=== PATIENT | female | born 1990 | race Caucasian/White ===

== ENCOUNTER 2020-03-11 11:15 | Emergency (ER) | payer OTHER, SELFPAY ==
--- NOTE | ~2020-03-11 | XR_ITS ---
EXAMINATION: XR chest 2V DATE: 03/11/2020 12:10 INDICATION: Chest pain and shortness of breath TECHNIQUE: PA and lateral views of the chest are obtained. COMPARISON: None available FINDINGS: The lungs are free of acute opacities. There is no pleural effusion or pneumothorax. The ca rdiomediastinal silhouette is normal. The visualized bones and soft tissues are unremarkable. IMPRESSION: 1. No acute cardiopulmonary abnormality. Reviewed, dictated and finalized at location A. RAISER
--- NOTE | ~2020-03-11 | XR_ITS ---
EXAMINATION: XR ribs LT 2V DATE: 03/11/2020 13:03 INDICATION: Left lower rib pain. TECHNIQUE: 3 views of left ribs were obtained. COMPARISON: Chest 2 views 03/11/2020 FINDINGS: There is no left-sided pneumonia, pleural effusion, or pneumothorax. The heart size is norm al. There is no rib fracture. IMPRESSION: 1. No rib fracture. Reviewed, dictated and finalized at location A. TRICAL MANAGER IMPRESSION: 1. No rib fracture.
[2020-03-11 11:18] VITALS: BP 147/103; PULSE 112; RESP 20; TEMP 37.6; O2SAT 100
--- NOTE | 2020-03-11 11:22 | PC.NURSE ---
Called to ED waiting room to speak to patient. Patient arrived to ED with young son to be evaluated for complaints of chest pain. Patient advised by staff of ED visiting policy that restricted anyone under the 18 y/o from visiting/accompanying a patient that is not being seen due to current COVID restrictions, Patient reported she has no one available to watch her son while she is being evaluated. Audra Molina, ED Director aware. Patient triaged and to be placed in family services room while waiting evaluation by the ED physician. Patient reports she will continue to try to find someone to watch her son.
--- NOTE | 2020-03-11 11:23 | ECG_ITS ---
Measurements Intervals [place] Rate: 100 P: 63 CT: 116 QRS: 19 QRSD: 84 T: 43 QT: 325 QTc: 419 Interpretive Statements SINUS TACHYCARDIA SINUS ARRHYTHMIA WITH SHORT CT INTERVAL ATRIAL PREMATURE COMPLEX BASELINE ARTIFACT- I, II, III, AVR, AVF, V1-V4 BORDERLINE ECG Electronically Signed On 03-11-2020 15:14:19 FITTING ROOM SUPERVISOR by Presley Tavarez D.O.
[2020-03-11 11:39] VITALS: BP 142/95; PULSE 90; RESP 18; O2SAT 96
[2020-03-11 11:45] LABS: Basophils Percent Auto 0.4 % (0.2-1.2); Eosinophils Percent Auto 0.7 % (0-4.4); Hemoglobin 13.4 g/dL (12.0-15.0); Immature Granulocyte Absolute 0.01 K/mm3 (0.00-0.031); Immature Granulocyte Percent A 0.2 % (0-0.5); Lymphocytes Percent Auto 30.3 % (18.3-44.2); Mean Corpuscular HGB Conc 34.4 g/dl (32-36); Mean Corpuscular Hemoglobin 29.6 pg (26-34); Mean Corpuscular Volume 86.1 fl (80-100); Mean Platelet Volume 11.7 fl (7.4-10.4); Monocytes Absolute Auto 0.3 K/mm3 (0.1-0.6); Monocytes Percent Auto 5.9 % (2.6-8.5); Neutrophils Absolute Auto 3.5 K/mm3 (1.3-6.7); Neutrophils Percent Auto 62.5 % (45.5-73.1); Platelet Count Result 193 k/mm3 (150-375); Red Blood Count 4.53 M/mm3 (4.2-5.4); Red Cell Distribution Width 12.8 % (11.5-14.5); White Blood Count 5.6 K/mm3 (4.5-10.0)
[2020-03-11] MEDS: ASPIRIN 81 MG CHEWABLE TABLET 324 MG PO (11:47)
[2020-03-11 12:03] LABS: INR 0.9; Prothrombin Time 12.7 Seconds (11.1-14.7)
[2020-03-11 12:20] LABS: Anion Gap 10 mmol/L (8-16); Blood Urea Nitrogen 10 mg/dL (7-17); Calcium 9.5 mg/dL (8.4-10.2); Carbon Dioxide 26 mmol/L (22-30); Chloride 104 mmol/L (98-107); Estimated CRCL calculation 88 ml/min; Estimated Glomerular Filt Rate > 60; Glucose 141 mg/dL (65-105); Sodium 140 mmol/L (137-145)
[2020-03-11 12:37] LABS: Troponin I < 0.012 ng/mL (0.000-0.034)
[2020-03-11] MEDS: KETOROLAC 30 MG/ML VIAL (*BKC) IM (13:54)
--- NOTE | 2020-03-11 14:03 | ED.CHESTPAIN ---
HPI - Chest Pain General Chief Complaint: Chest Pain Stated Complaint: CHEST PAIN X1D Time Seen by Provider: 03/11/20 11:54 History of Present Illness HPI narrative: Patient is a 29-year-old female who presents to the ER with left-sided chest pain. Sudden onset when waking up this morning. Worse with palpation and movement. Is located just under the breast. No runny nose/sore throat/cough. No known trauma. Patient is not taking any pain medication for this. There is no radiation of the pain. Related Data Home Medications Medication Instructions Recorded Confirmed norethindrone-e.estradiol-iron 1 tablet PO DAILY 03/11/20 03/11/20 [Aurovela Fe 1.5/30 (28)] Allergies Allergy/AdvReac Type Severity Reaction Status Date / Time No Known Allergies Allergy Unknown Unverified 10/08/18 08:15 Review of Systems Review of Systems: All systems reviewed & are unremarkable except as noted in HPI and below Constitutional: Constitutional: Denies chills, Denies fever(s) and Denies weakness ENT: Denies nasal congestion and Denies sore throat Cardiovascular: Cardiovascular: Reports chest pain, Denies rapid heart rate and Denies radiating jaw, neck or arm pain Respiratory: Respiratory: Denies cough, Denies dyspnea and Denies wheezing Gastrointestinal: Gastrointestinal: Denies abdominal pain, Denies nausea and Denies vomiting Musculoskeletal: Musculoskeletal: Denies back pain, Denies myalgias and Denies muscle cramps PMFSH Past Medical History Medical History (Updated 03/11/20 @ 14:12 by Jose Tinoco MD) Ectopic Healthy female adult Surgical History Surgical History (Updated 03/11/20 @ 14:09 by Jose Tinoco MD) No pertinent past surgical history Social History Social History (Updated 03/11/20 @ 14:09 by Jose Tinoco MD) Smoking status: Never smoker Exam Narrative: Exam Narrative: GENERAL: Well-appearing, well-nourished, and in no acute distress. HEAD: Normocephalic, atraumatic. CHEST: Clear to auscultation. No respiratory distress. Patient began crying after touching the lower chest wall inferior to the breast on the rib. HEART: Regular rate and rhythm. Normal peripheral pulses. ABDOMEN: Soft, nontender, nondistended. EXTREMITIES: Normal range of motion. No edema. SKIN: Warm, dry, no rash. No rash or bruising. NEURO: Alert and oriented x3. PSYCH: Normal mood and affect. Course Course Emergency Course: Informed of results. Discharge home. Will give naproxen some [place]. Vital Signs Vital signs: Vital Signs Temperature 99.7 F H 03/11/20 11:18 Pulse Rate 112 H 03/11/20 11:18 Respiratory Rate 20 03/11/20 11:18 Blood Pressure 147/103 H 03/11/20 11:18 Pulse Oximetry 100 03/11/20 11:18 Temperature 99.7 F H 03/11/20 11:18 Pulse Rate 90 03/11/20 11:39 Respiratory Rate 18 03/11/20 11:39 Blood Pressure 142/95 H 03/11/20 11:39 Pulse Oximetry 96 03/11/20 11:39 MDM - Chest Pain Lab Data Result diagrams: 03/11/20 11:28 03/11/20 11:28 Labs: Lab Results 03/11/20 03/11/20 03/11/20 Range/Units 11:28 11:28 11:28 WBC 5.6 (4.5-10.0) K/mm3 RBC 4.53 (4.2-5.4) M/mm3 Hgb 13.4 (12.0-15.0) g/dL Hct 39.0 (37.0-47.0) % MCV 86.1 (80-100) fl MCH 29.6 (26-34) pg MCHC 34.4 (32-36) g/dl RDW 12.8 (11.5-14.5) % Plt Count 193 (150-375) k/mm3 MPV 11.7 H (7.4-10.4) fl Immature Gran % (Auto) 0.2 (0-0.5) % Neut % (Auto) 62.5 (45.5-73.1) % Lymph % (Auto) 30.3 (18.3-44.2) % Nolan % (Auto) 5.9 (2.6-8.5) % Eos % (Auto) 0.7 (0-4.4) % Baso % (Auto) 0.4 (0.2-1.2) % Lymph # (Auto) 1.70 (0.9-3.2) K/mm3 Nolan # (Auto) 0.3 (0.1-0.6) K/mm3 Eos # (Auto) 0.0 (0-0.3) K/mm3 Baso # (Auto) 0.0 (0.0-0.1) K/mm3 Abs Immat Gran (auto) 0.01 (0.00-0.031) K/mm3 Absolute Neuts (auto) 3.5 (1.3-6.7) K/mm3 Absolute Nucleated RBC 0.0 (0.0-0.012)
[2020-03-11 14:21] VITALS: BP 124/78; PULSE 74; RESP 18; O2SAT 99
[2020-03-11 14:25] VITALS: BP 124/78; PULSE 65; RESP 17; O2SAT 100
== END 2020-03-11 14:27 | disposition home or self-care (01) ==
PROVIDERS: Emergency Provider Emergency Medicine
DX: R07.9 Chest pain, unspecified (principal); R07.89 Other chest pain; R00.0 Tachycardia, unspecified; I49.1 Atrial premature depolarization
CPT/HCPCS: 36415; 71046; 71100; 80048; 84484; 85025; 85610; 85730; 93005; 96372; 99284; A9270; J1885

== ENCOUNTER 2023-12-23 15:52 | Outpatient (CLI) | payer BC, SELFPAY ==
--- NOTE | ~2023-12-23 | US_ITS ---
EXAMINATION: US OB transvaginal DATE: 12/23/2023 16:17 INDICATION: Uncertain dates. Confirmation of viability. TECHNIQUE: Real-time transvaginal pelvic ultrasound was performed. COMPARISON: None. FINDINGS: The uterus measures 9.1 x 5.6 x 5.9 cm. There is an intrauterine gestational sac. A yolk sac is ident ified. The crown rump length measures 2 mm, which correlates with an estimated gestational age of 5 weeks and 5 day(s) (+/-) 4 day(s). heart motion is identified measuring 95 beats per penny te (bpm) by M-mode Doppler. There is a small subchronic hematoma. The right ovary measures 2.9 x 2.5 x 2.3 cm. The left ovary is not visualized. There is no free fluid in the pelvis. IMPRESSION: 1. Single living intrauterine gestation with estimated date of delivery of 08/19/2024. 2. Small subchronic hematoma. Reviewed, dictated and finalized at location A. IMPRESSION: 1. Single living intrauterine gestation with estimated date of delivery of 07/22. 2. Small subchronic hematoma.
== END 2023-12-23 15:53 | disposition home or self-care (01) ==
PROVIDERS: PCP Advanced Practice Midwife; Visit Provider Advanced Practice Midwife
DX: O36.80X0 Pregnancy with inconclusive fetal viability, not applicable or unspecified (principal); O46.90 Antepartum hemorrhage, unspecified, unspecified trimester
CPT/HCPCS: 76817

== ENCOUNTER 2023-12-31 15:54 | Outpatient (CLI) | payer BC, SELFPAY ==
--- NOTE | ~2023-12-31 | US_ITS ---
EXAMINATION: US OB transvaginal DATE: 12/31/2023 16:30 INDICATION: Subchronic hematoma. TECHNIQUE: Real-time transvaginal pelvic ultrasound was performed. COMPARISON: Ultrasound 12/23/2023 FINDINGS: The uterus measures 10.2 x 6.1 x 7.0 cm. There is an intrauterine gestational sac. A yolk sac is iden tified. The crown rump length measures 7 mm, which correlates with an estimated gestational ag e of 6 weeks and 4 day(s) (+/-) 4 day(s). heart motion is identified measuring 142 beats per mi nute (bpm) by M-mode Doppler. There is a small subchronic hematoma measuring 1.4 x 0.2 x 0.7 cm. The right ovary measures 3.8 x 2.0 x 2.4 cm. The left ovary is not visualized. There is no free fluid in the pelvis. IMPRESSION: 1. Single living intrauterine gestation with estimated date of delivery of 08/19/2024 based on the ul trasound from 12/23/2023. 2. Stable small subchronic hematoma. Reviewed, dictated and finalized at location A. IMPRESSION: 1. Single living intrauterine gestation with estimated date of delivery of 07/22 based on the ultrasound from 12/23/2023. 2. Stable small subchronic hematoma.
== END 2023-12-31 15:55 | disposition home or self-care (01) ==
PROVIDERS: PCP Obstetrics & Gynecology Gynecology; Visit Provider Obstetrics & Gynecology Gynecology
DX: O36.8910 Maternal care for other specified fetal problems, first trimester, not applicable or unspecified (principal); O46.90 Antepartum hemorrhage, unspecified, unspecified trimester; Z3A.00 Weeks of gestation of pregnancy not specified
CPT/HCPCS: 76817

== ENCOUNTER 2024-01-29 10:44 | Outpatient (CLI) | payer BC, SELFPAY ==
--- NOTE | ~2024-01-29 | US_ITS ---
Pelvic ultrasound. Clinical History: First trimester , subchorionic hemorrhage COMPARISON: 12/31/2023 Technique: Realtime transabdominal and transvaginal scanning of the pelvis was performed. Color flow Doppler and Doppler spectral analysis were performed. Findings: The uterus is anteverted, and contains an intrauterine gestation. Simla-rump length of 4.6 cm corresponds to an estimated gestational age of 11 weeks 3 days. heart rate is 157 bpm. No ray bchorionic hemorrhage evident on the current exam. The right ovary measures 3.4 x 2.0 x 2.5 cm. No significant right ovarian or adnexal mass is seen. The left ovary measures 2.6 x 2.6 x 1.0 cm. No significant left ovarian or adnexal mass is seen. There is no evidence of free fluid in the cul de sac. Impression: Live intrauterine gestation, with estimated gestational age of 11 weeks 3 days. heart rate is 1 57 bpm. Interval resolution of subchronic hematoma. Reviewed, dictated and finalized at location . GE INSIDE ADJUSTER Impression: Live intrauterine gestation, with estimated gestational age of 11 weeks 3 days. heart rate is 157 bpm. Interval resolution of subchronic hematoma.
== END 2024-01-29 10:45 | disposition home or self-care (01) ==
LOC: MICIMG 10:45
PROVIDERS: PCP Obstetrics & Gynecology Gynecology; Visit Provider Obstetrics & Gynecology Gynecology
DX: O36.8910 Maternal care for other specified fetal problems, first trimester, not applicable or unspecified (principal); Z3A.00 Weeks of gestation of pregnancy not specified
CPT/HCPCS: 76801

== ENCOUNTER 2024-03-18 08:23 | Outpatient (CLI) | payer BC, SELFPAY ==
--- NOTE | ~2024-03-18 | US_ITS ---
EXAMINATION: US OB /maternal detail DATE: 03/18/2024 09:27 INDICATION: anatomic survey. TECHNIQUE: Real-time ultrasound of the pelvis was performed. COMPARISON: Ultrasound 01/29/2024, 12/23/2023 FINDINGS: There is a single living fetus in vertex presentation. The placenta is posterior, 5.6 cm from the ce rvix. The cervical length is 3.1 cm on transabdominal images, which is normal. heart rate is 15 3 beats per minute (bpm). The amniotic fluid volume is subjectively normal. The following biometric data were obtained: Biparietal diameter (BPD): 4.1 cm; head circumference (HC): 15.3 cm; abdominal circumference (AC): 13 .4 cm; femur length (FL): 2.7 cm. These measurements are concordant. Estimated weight is 243 g +/- 36 g, which correlates with the 76th percentile when 08/19/24 is u sed as estimated date of delivery. As single measurements, these parameters are each equal to the following estimated gestational ages: BPD: 18 weeks 2 days. HC: 18 weeks 2 days. AC: 18 weeks 6 days. FL: 18 weeks 1 days. estimated gestational age based solely on measurements from this exam is 18 weeks 3 days +/- 1 weeks 2 days. The cerebral ventricles, cerebellum, cisterna magna, nuchal fold, and spine are normal. The heart is normal. The diaphragm, stomach, kidneys, and bladder are normal. There are two umbilical arteries to yield a 3-vessel cord. The cord insertion is normal. IMPRESSION: 1. Single living fetus in vertex presentation. 2. Estimated weight is 243 g +/- 36 g, which correlates with the 76th percentile when 08/19/24 is used as estimated date of delivery. This date was set by ultrasound on 12/23/2023. 3. Normal anatomic survey. Reviewed, dictated and finalized at location A. ING ANALYST IMPRESSION: 1. Single living fetus in vertex presentation. 2. Estimated weight is 243 g +/- 36 g, which correlates with the 76th pe rcentile when 08/19/24 is used as estimated date of delivery. This date was set by ultrasound on 12/23/2023. 3. Normal anatomic survey.
== END 2024-03-18 08:24 | disposition home or self-care (01) ==
LOC: MICIMG 08:24
PROVIDERS: PCP Advanced Practice Midwife; Visit Provider Advanced Practice Midwife
DX: Z36.9 Encounter for antenatal screening, unspecified (principal)
CPT/HCPCS: 76805

== ENCOUNTER 2024-04-25 16:14 | Outpatient (RCR) | payer BC, SELFPAY ==
[2024-04-25 16:29] VITALS: BP 110/62; PULSE 80
== END 2024-07-24 23:59 | disposition home or self-care (01) ==
LOC: ANHOBOP 16:14
PROVIDERS: Visit Provider Obstetrics & Gynecology Gynecology
DX: O26.892 Other specified pregnancy related conditions, second trimester (principal); Z3A.23 23 weeks gestation of pregnancy
CPT/HCPCS: 59025

== ENCOUNTER 2024-07-26 20:04 | Observation (INO) | payer BC, SELFPAY ==
--- OUTSIDE RECORDS SUMMARY | 2024-07-26 22:42 | XMS_ITS | Clinical Summary ---
Author Organization [place] [address] [facility] Address [address] [place] [address] Care Team Providers Care Airplane Gastank Liner Assembler Name Role Phone Ana Paula Gupta MD Primary Care Provid er Allergies No known active allergies Medications PNV with [id number] 27 mg iron- 1 mg tabletIndication s:Vitamin Deficiency Prevention Take 1 tablet by mouth daily 90 tablet 2 11/18/2022 Active Active Problems Problem Noted Date Diagnosed Date Abdominal pain 05/29/2021 Knee sprain 05/29/2021 Mass of breast 05/29/2021 Estimated Date of Delivery Comme nts Yes 08/19/2024 Resolved Problems Problem Noted Date Diagnosed Date Resolved Date Encounter for routine follow-up 11/16/2022 12/29/2022 Overview (11/17/2022): # ID: Afebrile. No signs/symptoms of infection. # Heme: Hgb 12.0. EBL 300 mL. No symptoms acute blood loss anemia. # CV/Pulm: Gestational hypertension - Blood pressures well controlled on no meds. Continue to monitor, consider starting antihypertensive if BP persistently elevated. Asymptomatic, denies GILMORE/RUQ pain/vision changes. CBC/CMP wnl, UPC wnl. Enrolled in remote BP monitoring. One MR BP noted in the last 24 hours. # GI/: Tolerating PO. Voiding spontaneously. # Pain: Controlled with above regimen. # MOC: Declines s/p counseling . # MOF: . Urine drug screen not indicated. Patient informed of results: N/A. # Post DVT prophylaxis: The patient has the following MAJOR risk factors none and the following MINOR risk factors BMI 30-39. SCDs ordered for VTE prophylaxis. # Disposition: Follow up to be scheduled with primary OB. Desires discharge home today. Normal labor 11/15/2022 12/29/2022 Supervision of other normal , antepartum 10/02/2022 12/29/2022 Overview (10/30/2022): -MARAL from [facility] @ 34wks, records in media and EPIC -h/o PPROM/PTD TIUP @ 17wks in 2012, adm to [facility] 08/08-08[facility]09 for ctx, SVE C/L/Hi BMZ 08/08 -h/o migraines -+chlamydia @ [facility] NO[facility], MARAL negative -h/o R ectopic and salpingectomy 09/19/2018 -R ovarian 3.2cm cyst -h/o ASCUS pap HPV-, due for pap -nml anatomy [x] Initial BMI: 33.19 [x] Labs: Labs: Lab Results Component Value Date ABORH O Positive 08/08/2022 IDCOOMB Negative 08/08/2022 [id number] Nonreactive 08/08/2022 LABRPR Nonreactive 08/08/2022 RUBELIGG Reactive 08/08/2022 HEPBSAG Nonreactive 08/08/2022 [x] Genetic Screening: nml NIPT [x] Baby ASA: n/a [x] 1hr GCT at 24-28wks: nml 94 [x] Tdap (27-36wks): 10/13/2022:Received at 28 weeks per pt. au [] Flu Shot: [] COVID vaccine: [] Rhogam (if Rh neg): n/a O+ [x] GBS at 36 wks: negative [x] [x] control method: condoms [] 39 weeks discussion of IOL vs. Expectant management: [x] Mode of delivery: anticipate [] For C/S bottle of CHG 4% and hand out provided @ 36wks Boy, NO circ, , [facility] peds Teaching: [x] 1st visit [x] 28-30 week [x] 36 week Threatened labor, antepartum 08/08/2022 12/29/2022 Encounters Date Type Department Care Team Description 05/12/2024 10:45 AM BRAIDING MACHINE OPERATOR Office Visit [facility] Medical [facility] Convenient Care at [address] [phone] Erica Mckeon NP COVID-19 (Primary Dx); Upper respiratory tract infection, unspecified type 04/29/2024 3:15 PM BRAIDING MACHINE OPERATOR Office Visit [facility] Convenient Care at [address] [phone] Nirmala Guerin NP Cough, unspecified type (Primary Dx); Sore throat; Viral upper respiratory tract infection from Last 3 Months Immunizations Immunization Administration Dates Next Due MMR 11/16/2022(Deferred: No longer n eeded) Varicella 11/16/2022(Deferred: No longer n eeded) Surgical History Surgery Date Site/Laterality Comments SALPINGECTOMY 03/22/2018 - 03/21/2019 Right WISDOM TOOTH EXTRACTION 03/22/2009 - 03/21/2010 Medical History Medical History Date Comments History of transfusion 2013 depression Migraine Social History Tobacco Use Types Packs/Day Years Used Date Smoking Tobacco: Never Smokeless Tobacco: Never Tobacco Cessation:Counseling Given: Not Answered Social Connection and Isolat ion Panel [NHANES] Answer Date Recorded In a typical week, how many times do you talk on the phone with family, friends, or neighbors? More than three times a week 11/16/2022 How often do you get togethe r with friends or relatives? More than three times a week 11/16/2022 How often do you attend chur ch or mandaeism services? Never 11/16/2022 Do you belong to any clubs o r organizations such as voodoo groups, unions, fraternal or athletic groups, or school groups? No 11/16/2022 How often do you attend meet ings of the clubs or organizations you belong to? Never 11/16/2022 Are you , , di vorced, , never , or living with a partner? 11/16/2022 AUDIT-C Answer Date Recorded Q1: How often do you have a drink containing alc ohol? Never 10/13/2022 Average Number of Drinks Not on file 023 Frequency of Binge Drinking Not on file 09/20 Overall Financial Resource Strain (CARDIA) Answe r Date Recorded How hard is it for you to pa y for the very basics like food, housing, medical care, and heating? Not very hard 11/16/2022 Hunger Vital Sign Answer Date Recorded Within the past 12 months, y ou worried that your food would run out before you got the money to buy more. Never true 11/17/19 23 Within the past 12 months, t he food you bought just didn't last and you didn't have money to get more. Never true 11/16/2022 PRAPARE - Transportation Answer Date Re corded In the past 12 months, has l ack of transportation kept you from medical appointments or from getting medications? No 10/21 In the past 12 months, has l ack of transportation kept you from meetings, work, or from getting things needed for daily living? No 11/16/2022 Housing Stability Vital Sign Answer Saud e Recorded In the last 12 months, was t here a time when you were not able to pay the mortgage or rent on time? No 11/16/2022 In the last 12 months, how many places have you lived? 0 11/16/2022 In the last 12 months, was t here a time when you did not have a steady place to sleep or slept in a skilled nursing (including now)? No 11/16/2022 Juda Depression Scale Answer Date Recorded Juda Depression Scale Total 15 12/29/2022 The thought of harming myself has occurred to me . Never 12/29/2022 Personal Safety Answer Date Recorded Have you ever been in or are you currently in a harmful physical or emotional relationship or is someone making you feel afraid or unsafe? 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 file Not on file Not on f ile Obstetrics History Para Term AB IAB SAB Ectopic Multiple Livin g Live Births 5 2 2 2 1 1 0 2 2 Date Outcome GA Total Labor Labor/2nd/3rd Weight Sex Type Anes PTL Idania A1 A5 Name Clin 2012 SAB 17w 0d Complications:Other (Comment ),Premature Rupture of Membranes,Twin 2013 Term 40w 0d M Vag-Sp ont Epidur al Y Livin g Delivery Location:[place], [place] 2019 Ectopic ECTOPI C 2022 Term 39w 1d 22h 57m 22h 40m/0h 14m/0h 03m 3.39 kg (7 lb 7.6 oz) M Vagina l Epidur al N Livin g 9 9 WAYLON BARBOUR, Talya Mead MD Delivery Location:[facility] ([facility]) Current Comments 4191-LY-IIYS-EBL 300 mL, gHT N Last Filed Vital Signs Vital Sign Reading Time Taken Comments Blood Pressure 122/76 05/12/2024 10:56 AM BRAIDING MACHINE OPERATOR Pulse 77 05/12/2024 10:56 AM BRAIDING MACHINE OPERATOR Temperature 36.3 C (97.4 F) 05/12/2024 10:56 AM BRAIDING MACHINE OPERATOR Respiratory Rate 18 05/12/2024 10:56 AM BRAIDING MACHINE OPERATOR Oxygen Saturation 97% 05/12/2024 10:56 AM BRAIDING MACHINE OPERATOR Inhaled Oxygen Concentration - - Weight 88.9 kg (196 lb) 05/12/2024 10:56 AM BRAIDING MACHINE OPERATOR Height 160 cm (5' 3 ) 05/12/2024 10:56 AM BRAIDING MACHINE OPERATOR Body Mass Index 34.72 05/12/2024 10:56 AM BRAIDING MACHINE OPERATOR Plan of Treatment Health Maintenance Due Date Last Done Comments DTaP/Tdap/Td Vaccine (1 - Tdap) 07/27/2003 Varicella Vaccines (1 of 2 - 13+ 2-dose series) 2005 Hepatitis B Screening 2010 Regular Well Visit/Exam 18-64 2010 Influenza Vaccine (#1) 2023 Cervical Cancer Screening 12/30/2023 12/29/2022 Depression Screening 12/30/2023 12/29/2022 Hepatitis C Screening Completed 08/08/2022 HPV Vaccines Aged Out No longer eligi ble based on patient's age to complete this topic Pneumococcal vaccine <65 Aged Out No longer eligible based on patient's age to complete this topic Procedures Procedure Name Priority Date/Time Associated Diagnosis Comments POC INFLUENZA A/B, COVID-19 ANTIGEN Routine 05/12/2024 11:06 AM BRAIDING MACHINE OPERATOR Upper respiratory tract infection, unspecified type POCT RAPID STREP Routine 04/29/2024 3:29 PM BRAIDING MACHINE OPERATOR Sore throat POC INFLUENZA A/B, COVID-19 ANTIGEN Routine 04/29/2024 3:28 PM BRAIDING MACHINE OPERATOR Cough, unspecified type PAP AND HPV, REFLEX TO HPV GENOTYPES Routine 12/29/2022 4:25 PM CDT Encounter for routine follow-up HEPATITIS C RNA, QUANTITATIVE, PCR Routine 08/08/2022 8:32 PM CDT from Last 3 Months or Most Recently Relevant to Health Maintenance Results * (ABNORMAL) POC Influenza A/B, COVID-19 antigen (05/12/2024 11:06 AM BRAIDING MACHINE OPERATOR) Influenza A Ag, POC Negative Negative [facility] Influenza B Ag, POC Negative Negative [facility] COVID-19 Ag POC Positive(A) Presumptive Negative, Invalid [facility] Nasal 05/12/2024 11:0 6 AM BRAIDING MACHINE OPERATOR Erica Mckeon COMPUTER EQUIPMENT REPAIRER POINT OF CARE TEST ORDERABLE S Final Result [facility] [address] [place] [address] * POCT rapid strep A (04/29/2024 3:29 PM BRAIDING MACHINE OPERATOR) Rapid Strep A, POC Negative Negative Swab 04/29/2024 3:29 PM BRAIDING MACHINE OPERATOR Nirmala Guerin COMPUTER EQUIPMENT REPAIRER POINT OF CARE TEST ORDERABLES F inal Result * POC Influenza A/B, COVID-19 antigen (04/29/2024 3:28 PM BRAIDING MACHINE OPERATOR) Influenza A Ag, POC Negative Negative [facility] Influenza B Ag, POC Negative Negative [facility] COVID-19 Ag POC Presumptive Negative Presumptive Negative, Invalid [facility] Nasal 04/29/2024 3:28 PM BRAIDING MACHINE OPERATOR Nirmala Guerin NP POINT OF CARE TEST ORDERABLES F inal Result [facility] [address] [place] [address] * Pap and HPV, reflex to HPV Genotypes (12/29/2022 4:25 PM CDT) CLINICAL INFORMATION: ASCUS/LIVAN Pap/Bx w/in 2yrs. SCREENING [facility] LMP UNKNOWN [facility] Previous Pap ASCUS [facility] Prev. Bx NONE GIVEN [facility] SOURCE: Cervix, Endocervix [facility] Pap, specimen adequacy SATISFACTORY FOR EVALUATION [facility] HPV interp Cytology Results: Negative for intraepithelial lesion or malignancy. Atrophic pattern; predominantly parabasal cells [facility] Kiln Firer YQ, CT(ASCP) CT screening location: [place] [address] [place] [address] [facility] Review parachute rigger KMS, CT(ASCP) CT Screening location: [place] [address] [place] [address] [facility] Comment [facility] Comment: EXPLANATORY NOTE: The Pap is a screening test for cervical cancer. It is not a diagnostic test and is subject to false negative and false positive results. It is most reliable when a satisfactory sample, regularly obtained, is submitted with relevant clinical findings and history, and when the Pap result is evaluated along with historic and current clinical information. EFFECTIVE FEBRUARY 15, 2023, the version of ThinPrep you ordered, commonly known as manual ThinPrep, will be DISCONTINUED. An alternative form of ThinPrep, called ThinPrep Imaging, will continue to be available. For a copy of the client communication (TIS Client Letter) showing TIS test codes, see [email or web address]/Resources, and navigate to Well-Woman>Physician Materials>TIS Client Letter. You can also call for test code assistance. Human papillomavirus DNA, High Risk E6/E7 Not Detected NOT DETECTED [employer] [facility] Comment: Not Detected High Risk HPV types (16,18,31,33,35,39,45,51,52, 56,58,59,66,68) were not detected. Other HPV types which cause anogenital lesions may be present. The significance of the other types of HPV in malignant processes has not been established. Methodology: Real Time PCR Thin prep 12/29/2022 4:25 PM CDT 12/30/2022 1:46 PM CDT Julia Rios NP LAB CYTOLOGY ORDERAB LES Final Result Performing Organization Address City/[facility] Co de Phone Number QUEST [facility] [address] [place] [address] [employer] [facility] [address] [facility] [place] [address] * Hepatitis C (HCV) RNA PCR, quantitative (08/08/2022 8:32 PM CDT) [facility] HCV RNA result Not Detected [facility] Comment: The quantifiable range of this assay is 15 IU/mL to 100,000,000 IU/mL (1.18 log IU/mL to 8.00 log IU/mL). Testing was performed by the [facility] 6800 HCV Test ([employer] Testing performed at [facility] Current Interpretive Data was last revised on 2020 Blood 08/08/2022 8:32 PM CDT 08/08/2022 8:55 PM CDT us Nirmala Koroma MD LAB MICROBIOLOGY - GENERAL O RDERABLES Final Result [facility] MENA[facility] Department [place] [address] from Last 3 Months or Most Recently Relevant to Health Maintenance Insurance BLUE ACCESS PA BLUE ACCESS PA BLUE ACCESS PA IDPA Advance Directives For more information, please contact: [phone] * Full Code (Latest Code Status on File) Date Activated Date Inactivated Comments 11/16/2022 5:18 AM 11/17/2022 6:35 PM * Full Code Date Activated Date Inactivated Comments 11/15/2022 4:07 AM 11/16/2022 5:18 AM Full CPR in case of cardiopulmonary arrest * Full Code Date Activated Date Inactivated Comments 08/08/2022 7:32 PM 08/09/2022 9:05 PM Care Teams Airplane Gastank Liner Assembler Relationship Specialty Start Date End Date Ana Paula Gupta MD [address] [place] [address] PCP - General Internal Medicine 05/12/24
--- OUTSIDE RECORDS SUMMARY | 2024-07-26 22:42 | XMS_ITS | Encounter Summary ---
Author Organization [facility] Address [address] [place] [address] Care Team Providers Care Technology Integration Specialist Name Role Phone None, Provider Primary Care Provider Unavaila ble Encounter Details Date Type Department Care Team (Latest Contact Info) Description 01/25/2018 Abstract [facility] Medical Group , Generic Conversion, Social History Tobacco Use Types Packs/Day Years Used Date Smoking Tobacco: Never Assessed Comments Unknown Sex and Gender Information Value Date Recorded Sex Assigned at Not on file Legal Sex Female 4:53 PM CDT Gender Identity Not on file Sexual Orientation Not on file documented as of this encounter Plan of Treatment Not on file documented as of this encounter Visit Diagnoses Not on filedocumented in this encounter Care Teams Technology Integration Specialist Relationship Specialty Start Date End Date None, Provider, PCP - General UNKNOWN PHYSICIAN SPECIALTY 08/08/22 documented as of this encounter
--- OUTSIDE RECORDS SUMMARY | 2024-07-26 22:42 | XMS_ITS | Referral Summary ---
Author Organization [place] [id number] [facility] Address [address] [place] [address] Care Team Providers Care College Athletic Director Name Role Phone Ana Paula Gupta MD Primary Care Provid er Encounters Date Type Department Care Team Description 05/12/2024 10:45 AM HEALTH RESEARCHER Office Visit [facility] Medical [facility] Convenient Care at [address] [phone] Erica Mckeon NP COVID-19 (Primary Dx); Upper respiratory tract infection, unspecified type 04/29/2024 3:15 PM HEALTH RESEARCHER Office Visit [facility] Convenient Care at [address] [phone] Nirmala Guerin NP Cough, unspecified type (Primary Dx); Sore throat; Viral upper respiratory tract infection from Last 3 Months Allergies No known active allergies Medications PNV with rzqzuef-pdyh-YC 27 mg iron- 1 mg tabletIndication s:Vitamin [...] ABORH O Positive 08/08/2022 IDCOOMB Negative 08/08/2022 [id number] Nonreactive 08/08/2022 LABRPR Nonreactive 08/08/2022 RUBELIGG Reactive [...] 36 week Threatened labor, antepartum 08/08/2022 12/29/2022 Immunizations Immunization Administration Dates Next Due MMR 11/16/2022(Deferred: No longer n eeded) Varicella 11/16/2022(Deferred: No longer n eeded) Social History Tobacco Use Types Packs/Day Years [...] 11/16/2022 How often do you attend chur or synagogue services? Never 11/16/2022 Do you belong to any clubs o r organizations such as latter-day groups, unions, fraternal or athletic groups, or [...] place to sleep or slept in a halfway (including now)? 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 Not on file Not on f ile Last Filed Vital Signs Vital Sign Reading Time Taken Comments Blood Pressure 122/76 05/12/2024 10:56 AM HEALTH RESEARCHER Pulse 77 05/12/2024 10:56 AM HEALTH RESEARCHER Temperature 36.3 C (97.4 F) 05/12/2024 10:56 AM HEALTH RESEARCHER Respiratory Rate 18 05/12/2024 10:56 AM HEALTH RESEARCHER Oxygen Saturation 97% 05/12/2024 10:56 AM HEALTH RESEARCHER Inhaled Oxygen Concentration - - Weight 88.9 kg (196 lb) 05/12/2024 10:56 AM HEALTH RESEARCHER Height 160 cm (5' 3 ) 05/12/2024 10:56 AM HEALTH RESEARCHER Body Mass Index 34.72 05/12/2024 10:56 AM HEALTH RESEARCHER Plan of Treatment Not on file Procedures Procedure Name Priority Date/Time Associated Diagnosis Comments POC INFLUENZA A/B, COVID-19 ANTIGEN Routine 05/12/2024 11:06 AM HEALTH RESEARCHER Upper respiratory tract infection, unspecified type POCT RAPID STREP Routine 04/29/2024 3:29 PM HEALTH RESEARCHER Sore throat POC INFLUENZA A/B, COVID-19 ANTIGEN Routine 04/29/2024 3:28 PM HEALTH RESEARCHER Cough, unspecified type PAP AND HPV, REFLEX TO HPV GENOTYPES Routine 12/29/2022 4:25 PM CDT Encounter for routine follow-up HEPATITIS C RNA, QUANTITATIVE, PCR Routine 08/08/2022 8:32 PM CDT from Last 3 Months or Most Recently Relevant to Health Maintenance Results * (ABNORMAL) POC Influenza A/B, COVID-19 antigen (05/12/2024 11:06 AM HEALTH RESEARCHER) Influenza A Ag, POC Negative Negative [facility] [place] Influenza B Ag, POC Negative Negative [facility] [place] COVID-19 Ag POC Positive(A) Presumptive Negative, Invalid [facility] Nasal 05/12/2024 11:0 6 AM HEALTH RESEARCHER us Erica Mckeon NP POINT OF CARE TEST ORDERABLE S Final Result [facility] [address] [place] [address] * POCT rapid strep A (04/29/2024 3:29 PM HEALTH RESEARCHER) Pathologist [facility] Rapid Strep A, POC Negative Negative Swab 04/29/2024 3:29 PM HEALTH RESEARCHER Nirmala Guerin NP POINT OF CARE TEST ORDERABLES F inal Result * POC Influenza A/B, COVID-19 antigen (04/29/2024 3:28 PM HEALTH RESEARCHER) Pathologist [facility] Influenza A Ag, POC Negative Negative [facility] Influenza B Ag, POC Negative Negative [facility] COVID-19 Ag POC Presumptive Negative Presumptive Negative, Invalid [facility] Nasal 04/29/2024 3:28 PM HEALTH RESEARCHER Nirmala Guerin CHICLE GRINDER FEEDER POINT OF CARE TEST ORDERABLES F inal Result Performing Organization Address City/State/[facility] Co de Phone Number RAJESHShira SY[facility] [address] [place] [address] * Pap and HPV, reflex to HPV Genotypes (12/29/2022 4:25 PM CDT) Pathologist [facility] CLINICAL INFORMATION: ASCUS/LIVAN Pap/Bx w/in 2yrs. SCREENING [facility] LMP UNKNOWN [facility] Previous Pap ASCUS [facility] Prev. Bx NONE GIVEN [facility] SOURCE: Cervix, Endocervix [facility] Pap, specimen adequacy SATISFACTORY FOR EVALUATION [facility] HPV interp Cytology Results: Negative for intraepithelial lesion or malignancy. Atrophic pattern; predominantly parabasal cells [facility] Microsoft Net Developer YQ, CT(ASCP) CT screening location: [place] [address] [place] [address] [facility] Review shoe cleaner KMS, CT(ASCP) CT Screening location: [place] [address] [address] [facility] Comment [facility] Comment: EXPLANATORY NOTE: The Pap is a [...] Client Letter) showing TIS test codes, see www.Xytis/Resources, and navigate to PinticsWoman>Physician Materials>TIS Client Letter. You can also call for test code assistance. Human papillomavirus DNA, High Risk E6/E7 Not Detected NOT DETECTED [facility] Comment: Not Detected High Risk HPV types (16,18,31,33,35,39,45,51,52, 56,58,59,66,68) were not detected. Other HPV types which cause anogenital lesions may be present. The significance of the other types of HPV in malignant processes has not been established. Methodology: Real Time PCR Thin prep 12/29/2022 4:25 PM CDT 12/30/2022 1:46 PM CDT Julia Rios NP LAB CYTOLOGY ORDERAB LES Final Result [facility] [address] [place] [address] [employer] [address] [place] [address] * Hepatitis C (HCV) RNA PCR, quantitative (08/08/2022 8:32 PM CDT) Pathologist [facility] HCV RNA result Not Detected [facility] Comment: The quantifiable range of this assay is 15 IU/mL to 100,000,000 IU/mL (1.18 log IU/mL to 8.00 log IU/mL). Testing was performed by the [facility] 6800 HCV Test ([employer] Testing performed at [facility] Current Interpretive Data was last revised on 2020 Blood 08/08/2022 8:32 PM CDT 08/08/2022 8:55 PM CDT Nirmala Koroma MD LAB MICROBIOLOGY - GENERAL O RDERABLES Final Result [facility] Department [place] [address] from Last 3 Months or Most Recently Relevant to Health Maintenance [place] IDVA Advance Directives For more information, please contact: [phone] * Full Code (Latest Code Status on File) Date Activated Date Inactivated Comments 11/16/2022 5:18 AM 11/17/2022 6:35 PM * Full Code Date Activated Date Inactivated Comments 11/15/2022 4:07 AM 11/16/2022 5:18 AM Full CPR in case of cardiopulmonary arrest * Full Code Date Activated Date Inactivated Comments 08/08/2022 7:32 PM 08/09/2022 9:05 PM Care Teams College Athletic Director Relationship Specialty Start Date End Date Ana Paula Gupta MD [address] [place], [place] [address] PCP - General Internal Medicine 05/12/24
--- OUTSIDE RECORDS SUMMARY | 2024-07-26 22:42 | XMS_ITS | Clinical Summary ---
Author Organization [facility] [employer] Address [address] [place] [address] Care Team Providers Care Otr Tanker Truck Driver Name Role Phone Ana Paula Gupta MD Primary Care Provider Source Comments [facility],non-owned Affiliates and Associated Physician Practices is amultiple site organization consisting of ambulatory clinics and hospital sitesin [place], [place], [place] and [place]. This disclosure is being madepursuant to the Care Everywhere program and may not contain all information available regarding this patient. Last updated 17.[facility] Allergies No known active allergies Medications * Be aware that medications may not be up to date on this document. Alwaysverify current medications with the patient. acetaminophen (Tylenol) 325 MG tablet Take 2 (two) tablets by mouth every 6 hours as needed 11/17/2022 Active ascorbic acid (Vitamin C) 250 MG tablet Take 1 (one) tablet by mouth once daily Active multivitamin daily tablet Take 1 (one) tablet by mouth daily with food With omega 3 Active magnesium 30 MG tablet Take 1 (one) tablet by mouth once daily Hair skin and nails Active Active Problems Comments Yes No known active problems Resolved Problems Problem Noted Date Diagnosed Date Resolved Date Abdominal pain 05/29/2021 12/15/2023 Knee sprain 05/29/2021 12/15/2023 Mass of breast 05/29/2021 12/15/2023 Need for prophylactic vaccin ation and inoculation against other combinations of diseases 05/29/2021 12/15/2023 Reason for consultation 05/29/202111/21 Family History Medical History Relation Name Comments ADD/ADHD Brother Anxiety Disorder Maternal Grandfather Asthma Maternal Grandfather Bipolar Disorder Maternal Grandfather CAD (Coronary Artery Disease) Maternal Grandfather Bipolar Disorder Mother None Known Paternal Grandfather Relation Name Status Comments Brother Alive Father Alive Maternal Grandfather Maternal Grandmother Alive Mother Alive Paternal Grandfather Paternal Grandmother Social History Tobacco Use Types Packs/Day Years Used Date Smoking Tobacco: Never Smokeless Tobacco: Never Tobacco Cessation:Counseling Given: No Alcohol Use Standard Drinks/Week Comments Not Currently 0 (1 standard drink = 0.6 oz pur e alcohol) PHQ-2 Answer Date Recorded Patient Health Questionnaire-2 Score 0 12/15/2023 Comments Yes Sex and Gender Information Value Date Recorded Sex Assigned at Not on file Legal Sex Female 2:53 PM COAL CONVEYOR OPERATOR Gender Identity Not on file Sexual Orientation Not on file Last Filed Vital Signs Vital Sign Reading Time Taken Comments Blood Pressure 120/76 12/15/2023 7:38 AM CDT Pulse 86 12/15/2023 7:38 AM CDT Temperature 36.5 C (97.7 F) 12/15/2023 7:38 AM CDT Respiratory Rate - - Oxygen Saturation 99% 02/27/2022 10:36 AM COAL CONVEYOR OPERATOR Inhaled Oxygen Concentration - - Weight 84.2 kg (185 lb 9.6 oz) 12/15/2023 7:38 A M CDT Height 161.3 cm (5' 3.5 ) 12/15/2023 7:38 AM CDT Body Mass Index 32.36 12/15/2023 7:38 AM CDT Plan of Treatment Health Maintenance Due Date Last Done Comments PAP SMEAR 1992 HIV SCREENING 07/27/2007 DTAP/TDAP/TD VACCINES (1 - Tdap) 07/27/2011 HEPATITIS B VACCINE (1 of 3 - 19+ 3-dose series) 07/27/2011 COVID-19 VACCINE (2023-2 5 season) 2023 DEPRESSION SCREENING 03/22/2024 12/15/2023 INFLUENZA VACCINE (Season Ended) 2024 ZOSTER VACCINE (1 of 2) 2042 Respiratory Syncytial Virus (RSV) Vaccine Pt: or over 60 yrs (1 - 1-dose 75+ series) 07/27/2067 HEPATITIS C SCREENING Completed 08/08/2022 HIB VACCINE Aged Out No longer eligi ble based on patient's age to complete this topic HPV VACCINE Aged Out No longer eligi ble based on patient's age to complete this topic MENINGOCOCCAL (Group B) VACC INE SHARED DECISION-MAKING Aged Out No longer eligibl e based on patient's age to complete this topic MENINGOCOCCAL GROUPS A/C/Y/W VACCINE Aged Out No longer eligible b ased on patient's age to complete this topic PNEUMOCOCCAL VACCINE Aged Out No long er eligible based on patient's age to complete this topic Insurance MEDICAID - OUT OF [facility] [address] [place] Care Teams Otr Tanker Truck Driver Relationship Specialty Start Date End Date Ana Paula Gupta MD [address] [place] [id number] PCP - General Internal Medicine 12/15/23
--- OUTSIDE RECORDS SUMMARY | 2024-07-26 22:42 | XMS_ITS | Clinical Summary ---
Author Organization [facility] Address [address] [place] [address] Care Team Providers Care Mill Work Name Role Phone None, Provider Primary Care Provider Unavaila ble Allergies No known active allergies Medications Prenat w/o D-PW-Lejqdfd-FA- DHA (VITAMEDMD ONE RX/QUATREFOLIC) 30-0.6-0.4-200 MG Cap Take by mouth daily. Active Social History Tobacco Use Types Packs/Day Years Used Date Smoking Tobacco: Never Smokeless Tobacco: Never Tobacco Cessation:Counseling Given: Not Answered Alcohol Use Standard Drinks/Week Comments Not Currently 0 (1 standard drink = 0.6 oz pur e alcohol) Comments No Sex and Gender Information Value Date Recorded Sex Assigned at Not on file Legal Sex Female 4:53 PM CDT Gender Identity Not on file Sexual Orientation Not on file Last Filed Vital Signs Vital Sign Reading Time Taken Comments Blood Pressure 130/82 06/03/2023 11:41 AM CDT Pulse 57 06/03/2023 11:41 AM CDT Temperature 36.3 C (97.4 F) 06/03/2023 11:41 AM CDT Respiratory Rate 16 06/03/2023 11:41 AM CDT Oxygen Saturation 100% 06/03/2023 11:41 AM CDT Inhaled Oxygen Concentration - - Weight 77.1 kg (170 lb) 06/03/2023 11:41 AM CDT Height 160 cm (5' 3 ) 06/03/2023 11:41 AM CDT Body Mass Index 30.11 06/03/2023 11:41 AM CDT Plan of Treatment Health Maintenance Due Date Last Done Comments Cervical Cancer Screening Pa p Smear (Age 30 to 64) Every 3 Years 1992 Annual Physical 07/27/1995 Hepatitis C 2010 DTaP, Tdap and Td Vaccines ( 1 - Tdap) 07/27/2011 Hepatitis B Vaccines (1 of 3 - 19+ 3-dose series) 07/27/2011 Cervical Cancer Screening Pa p with HPV Testing (Age 30 to 64) Every 5 Years 2022 Cervical Cancer Screening with HPV 2022 COVID-19 Vaccine ( - 2023-2 5 season) 2023 HPV Vaccines Aged Out No longer eligi ble based on patient's age to complete this topic Meningococcal B Vaccine Aged Out No l onger eligible based on patient's age to complete this topic Meningococcal Vaccine Aged Out No nadya dexter eligible based on patient's age to complete this topic Pneumococcal Vaccine: Pediat rics (0 to 5 Years) and At-Risk Patients (6 to 49 Years) Aged Out No longer eligible b ased on patient's age to complete this topic RSV Immunizations Under 20 Months Aged Out No longer eligible based on patient's age to complete this topic Insurance Care Teams Mill Work Relationship Specialty Start Date End Date None, Provider, MD PCP - General UNKNOWN PHYSICIAN SPECIALTY 08/08/22
[2024-07-26 22:54] VITALS: BMI 39.5
--- NOTE | 2024-07-26 22:54 | OBADM ---
This patient, Shital Harden, admitted to the OB room Labor/Delivery/Recovery 106 for observation. Patient/family oriented to hospital policies and general routines including ID bracelet, bed and alarms, visiting hours, pain management, procedures, bathroom and other care routines, personal items, smoking policy, room service/diet, and visiting hours. Patient/Family are encouraged to report perceived risks to care and to ask questions if they do not understand what they are told or what they should do.
--- NOTE | 2024-07-29 08:20 | PM.OBTRLD ---
OB - Triage/Final Diagnosis Visit Information Reason for evaluation: threatened labor Comments/Additional reasons for admission: I have assessed the risk for this patient, Shital Harden, and determined that she would benefit from observation care.
== END 2024-07-26 23:06 | disposition home or self-care (01) ==
PROVIDERS: Admitting Provider Obstetrics & Gynecology Gynecology; Visit Provider Obstetrics & Gynecology Gynecology
DX: O47.03 False labor before 37 completed weeks of gestation, third trimester (principal); Z3A.36 36 weeks gestation of pregnancy
CPT/HCPCS: 59025; G0378; G0379

== ENCOUNTER 2024-07-29 08:55 | Outpatient (CLI) | payer BC, SELFPAY ==
--- NOTE | ~2024-07-29 | US_ITS ---
EXAMINATION: US OB follow up DATE: 07/29/2024 09:21 INDICATION: Estimated size greater than expected for estimated gestational age TECHNIQUE: Real-time ultrasound of the pelvis was performed. The interpreting radiologist was not pre sent for the study. COMPARISON: None. FINDINGS: There is a single living fetus in vertex presentation. The placenta is posterior and not low-lying. heart rate is 149 beats per minute (bpm). The amniotic fluid index is 17.4 cm, which is normal (5th%-95%: 7.5-24.4 cm at 37 weeks estimated gestational age). The following biometric data were obtained: BPD: 9.7 cm -> 39 weeks 6 days Head circumference: 34.5 cm -> 39 weeks 6 days Abdominal circumference: 33.4 cm -> 37 weeks 2 days Femur length: 6.6 cm -> 34 weeks 0 days These measurements are concordant. Head circumference to abdominal circumference ratio: 1.03 (normal range 0.90-1.05). Estimated weight: 3098 g (+/-) 465 g or 6 lbs. 13 oz. (+/-) 16 oz. IMPRESSION: 1. Single living fetus in vertex presentation with heart rate of 149 bpm. 2. Normal amniotic fluid index of 17.4 cm. 3. Estimated weight is 57th percentile by Hadlock criteria when 08/19/2024 is used as the estima alvin date of delivery (DARYA). Please correlate with clinical information or earlier ultrasounds for mos t accurate DARYA. Reviewed, dictated and finalized at location A. IMPRESSION: 1. Single living fetus in vertex presentation with heart rate of 149 bpm. 2. Normal amniotic fluid index of 17.4 cm. 3. Estimated weight is 57th percentile by Hadlock criteria when 08/19/2024 is used as the estimated date of delivery (DARYA). Please correlate with clinica l information or earlier ultrasounds for most accurate DARYA.
== END 2024-07-29 08:56 | disposition home or self-care (01) ==
PROVIDERS: PCP Obstetrics & Gynecology Gynecology; Visit Provider Obstetrics & Gynecology Gynecology
DX: O36.63X0 Maternal care for excessive fetal growth, third trimester, not applicable or unspecified (principal); Z3A.00 Weeks of gestation of pregnancy not specified
CPT/HCPCS: 76816

== ENCOUNTER 2024-07-31 15:32 | Observation (INO) | payer BC, SELFPAY ==
--- OUTSIDE RECORDS SUMMARY | 2024-07-31 18:21 | XMS_ITS | Referral Summary ---
Author Organization [facility] [address] [facility] Address [address] [place] [address] Care Team Providers Care Roll Forming Machine Set Up Operator Name Role Phone Ana Paula Gupta MD Primary Care Provid er Encounters Date Type Department Care Team Description 05/12/2024 10:45 AM STERILE TECHNICIAN Office Visit [facility] [place] [address] [place] [id number] Erica Mckeon NP COVID-19 (Primary Dx); Upper respiratory tract infection, unspecified type from Last 3 Months Allergies No known active allergies Medications PNV with lqakwml-zshh-SH 27 mg iron- 1 mg tabletIndication s:Vitamin [...] ABORH O Positive 08/08/2022 IDCOOMB Negative 08/08/2022 [id number] Nonreactive 08/08/2022 LABRPR Nonreactive 08/08/2022 RUBELIGG Reactive [...] often do you attend chur ch or episcopalian services? Never 11/16/2022 Do you belong to any clubs o r organizations such as cheondoism groups, unions, fraternal or athletic groups, or [...] place to sleep or slept in a long-term (including now)? 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 on file Not on file Not on f ile Last Filed Vital Signs Vital Sign Reading Time Taken Comments Blood Pressure 122/76 05/12/2024 10:56 AM STERILE TECHNICIAN Pulse 77 05/12/2024 10:56 AM STERILE TECHNICIAN Temperature 36.3 C (97.4 F) 05/12/2024 10:56 AM STERILE TECHNICIAN Respiratory Rate 18 05/12/2024 10:56 AM STERILE TECHNICIAN Oxygen Saturation 97% 05/12/2024 10:56 AM STERILE TECHNICIAN Inhaled Oxygen Concentration - - Weight 88.9 kg (196 lb) 05/12/2024 10:56 AM STERILE TECHNICIAN Height 160 cm (5' 3 ) 05/12/2024 10:56 AM STERILE TECHNICIAN Body Mass Index 34.72 05/12/2024 10:56 AM STERILE TECHNICIAN Plan of Treatment Not on file Procedures Procedure Name Priority Date/Time Associated Diagnosis Comments POC INFLUENZA A/B, COVID-19 ANTIGEN Routine 05/12/2024 11:06 AM STERILE TECHNICIAN Upper respiratory tract infection, unspecified type PAP AND HPV, REFLEX TO HPV GENOTYPES Routine 12/29/2022 4:25 PM CDT Encounter for routine follow-up HEPATITIS C RNA, QUANTITATIVE, PCR Routine 08/08/2022 8:32 PM CDT from Last 3 Months or Most Recently Relevant to Health Maintenance Results * (ABNORMAL) POC Influenza A/B, COVID-19 antigen (05/12/2024 11:06 AM STERILE TECHNICIAN) Influenza A Ag, POC Negative Negative [facility] Influenza B Ag, POC Negative Negative [facility] COVID-19 Ag POC Positive(A) Presumptive Negative, Invalid [facility] Nasal 05/12/2024 11:0 6 AM STERILE TECHNICIAN Erica Mckeon NP POINT OF CARE TEST ORDERABLE S Final Result Performing Organization Address City/State/[facility] Co de Phone Number [facility] [address] [place] [address] * Pap and HPV, reflex to HPV Genotypes (12/29/2022 4:25 PM CDT) CLINICAL INFORMATION: ASCUS/LIVAN Pap/Bx w/in 2yrs. [facility]CRE[facility]ING [facility] Previous Pap ASCUS [facility] Prev. Bx NONE [facility]IVEN [facility] SOURCE: Cervix, Endocervix [facility] Pap, specimen adequacy SATISFACTORY FOR EVALUATION [facility] HPV interp Cytology Results: Negative for intraepithelial lesion or malignancy. Atrophic pattern; predominantly parabasal cells [facility] Field Insurance Sales Manager YQ, CT(ASCP) CT screening location: [place] [address] [place] [id number] [facility] Review dry press operator KMS, CT(ASCP) CT Screening location: [place] [address] [address] [id number] [facility] Comment [facility] Comment: EXPLANATORY NOTE: The Pap is a [...] Client Letter) showing TIS test codes, see www.Booktrope/Resources, and navigate to [employer]>Physician Materials>TIS Client Letter. You can also call for test code assistance. Human papillomavirus DNA, High Risk E6/E7 Not Detected NOT DETECTED [facility]/Negrita [place] Comment: Not Detected High Risk HPV types (16,18,31,33,35,39,45,51,52, 56,58,59,66,68) were not detected. Other HPV types which cause anogenital lesions may be present. The significance of the other types of HPV in malignant processes has not been established. Methodology: Real Time PCR Thin prep 12/29/2022 4:25 PM CDT 12/30/2022 1:46 PM CDT us Julia Rios NP LAB CYTOLOGY ORDERAB LES Final Result [facility] [place] [address] [address] [place] [phone] [place] [facility]/[place] [address] [facility] [place] [address] * Hepatitis C (HCV) RNA PCR, quantitative (08/08/2022 8:32 PM CDT) [facility] Signature HCV RNA result Not Detected [facility] Comment: The quantifiable range of this assay is 15 IU/mL to 100,000,000 IU/mL (1.18 log IU/mL to 8.00 log IU/mL). Testing was performed by the [facility] 6800 HCV Test ([employer] Testing performed at [facility] Current Interpretive Data was last revised on 2020 Blood 08/08/2022 8:32 PM CDT 08/08/2022 8:55 PM CDT Nirmala Koroma MD LAB MICROBIOLOGY - GENERAL O RDERABLES Final Result [facility] [place] [address] from Last 3 Months or Most Recently Relevant to Health Maintenance Insurance [place] [facility] Member Subscriber Plan / Payer (Ef fective 2021-Present) Name:Shital Harden Relation to Subscriber:Self Name:Shital Harden Payer ID:[id number] (NAIC) Type:BC OTHER Address: [id number] [place] [address] Advance Directives For more information, please contact: [phone] * Full Code (Latest Code Status on File) Date Activated Date Inactivated Comments 11/16/2022 5:18 AM 11/17/2022 6:35 PM * Full Code Date Activated Date Inactivated Comments 11/15/2022 4:07 AM 11/16/2022 5:18 AM Full CPR in case of cardiopulmonary arrest * Full Code Date Activated Date Inactivated Comments 08/08/2022 7:32 PM 08/09/2022 9:05 PM Care Teams Roll Forming Machine Set Up Operator Relationship Specialty Start Date End Date Ana Paula Gupta MD [address] [place] [address] PCP - General Internal Medicine 05/12/24
--- OUTSIDE RECORDS SUMMARY | 2024-07-31 18:21 | XMS_ITS | Encounter Summary ---
Author Organization [facility] Address [address] [place] [address] Care Team Providers Care Director Of Finance Name Role Phone None, Provider Primary Care Provider Unavaila ble Encounter Details Date Type Department Care Team (Latest Contact Info) Description 01/25/2018 Abstract [facility] , Generic Conversion, Social History [...] on filedocumented in this encounter Care Teams Director Of Finance Relationship Specialty Start Date End Date None, Provider, PCP - General UNKNOWN PHYSICIAN SPECIALTY 08/08/22 documented as of this encounter
--- OUTSIDE RECORDS SUMMARY | 2024-07-31 18:21 | XMS_ITS | Clinical Summary ---
Author Organization [facility] Address [address] [place] [address] Care Team Providers Care Dipper And Drier Name Role Phone Ana Paula Gupta MD Primary Care Provider Source Comments [facility],non-owned Affiliates and Associated Physician Practices is amultiple site organization consisting of ambulatory clinics and hospital sitesin [place], [place] and [place]. This disclosure is being madepursuant to the Care Everywhere program and may not contain all information available regarding this patient. Last updated 17.[facility] Allergies No known active allergies Medications * [...] on file Legal Sex Female 2:53 PM MEAT GRADING MACHINE OPERATOR Gender Identity Not on file Sexual Orientation Not on file Last Filed Vital Signs Vital Sign Reading Time Taken Comments Blood Pressure 120/76 12/15/2023 7:38 AM CDT Pulse 86 12/15/2023 7:38 AM CDT Temperature 36.5 C (97.7 F) 12/15/2023 7:38 AM CDT Respiratory Rate - - Oxygen Saturation 99% 02/27/2022 10:36 AM MEAT GRADING MACHINE OPERATOR Inhaled Oxygen Concentration - - [...] this topic Insurance MEDICAID - OUT OF [facility] [address] [place] Care Teams Dipper And Drier Relationship Specialty Start Date End Date Ana Paula Gupta MD [address] [place] [id number] PCP - General Internal Medicine 12/15/23
--- OUTSIDE RECORDS SUMMARY | 2024-07-31 18:21 | XMS_ITS | Clinical Summary ---
Author Organization [facility] Address [address] [place] [address] Care Team Providers Care Real Estate Utilization Officer Name Role Phone None, Provider Primary Care Provider Unavaila ble Allergies No known active allergies Medications Prenat w/o N-TF-Eepkrpk-FA- DHA (VITAMEDMD ONE RX/QUATREFOLIC) 30-0.6-0.4-200 MG Cap [...] this topic Meningococcal Vaccine Aged Out No andya dexter eligible based on patient's age to complete this topic Pneumococcal Vaccine: Pediat rics (0 to 5 Years) and At-Risk Patients (6 to 49 Years) Aged Out No longer eligible b ased on patient's age to complete this topic RSV Immunizations Under 20 Months Aged Out No longer eligible based on patient's age to complete this topic Insurance Care Teams Real Estate Utilization Officer Relationship Specialty Start Date End Date None, Provider, MD PCP - General UNKNOWN PHYSICIAN SPECIALTY 08/08/22
--- OUTSIDE RECORDS SUMMARY | 2024-07-31 18:21 | XMS_ITS | Clinical Summary ---
Author Organization [place] [id number] [facility] Address [address] [place] [address] Care Team Providers Care Solar Sales Representative Name Role Phone Ana Paula Gupta MD Primary Care Provid er Allergies No known active allergies Medications PNV with ebkxlgh-wyir-[id number] 27 mg iron- 1 mg tabletIndication s:Vitamin [...] ABORH O Positive 08/08/2022 IDCOOMB Negative 08/08/2022 [id number] Nonreactive 08/08/2022 LABRPR Nonreactive 08/08/2022 RUBELIGG Reactive [...] Department Care Team Description 05/12/2024 10:45 AM EXPORT ADMINISTRATOR Office Visit [facility] [place] [address] [place] [id number] Erica Mckeon NP COVID-19 (Primary Dx); Upper respiratory tract infection, unspecified type from Last 3 Months Immunizations Immunization Administration Dates Next Due MMR 11/16/2022(Deferred: No longer n eeded) Varicella 11/16/2022(Deferred: No longer n eeded) Surgical History Surgery Date Site/Laterality Comments SALPINGECTOMY 03/22/2018 - 03/21/2019 Right WISDOM TOOTH EXTRACTION 03/22/2009 - 03/21/2010 Medical History Medical History Date Comments History of transfusion 2012 depression Migraine Social History Tobacco Use Types [...] often do you attend chur ch or restoration services? Never 11/16/2022 Do you belong to any clubs o r organizations such as taoist groups, unions, fraternal or athletic groups, or [...] place to sleep or slept in a long term (including now)? No 11/16/2022 [place] Depression Scale Answer Date Recorded [place] Depression Scale Total 15 12/29/2022 The thought [...] on file Legal Sex Female 8:12 PM EXPORT ADMINISTRATOR Gender Identity Not on file Sexual Orientation [...] ont Epidur al Y Livin g Delivery Location:[place], [place] [address] Ectopic ECTOPI C 2022 Term 39w 1d 22h 57m 22h 40m/0h 14m/0h 03m 3.39 kg (7 lb 7.6 oz) M Vagina l Epidur al N Livin g 9 9 WAYLON BARBOUR, Talya Mead MD Delivery Location:[facility] C ampus ([facility]LD) Current Comments [id number]-PO-VCCF-EBL 300 mL, gHT N Last Filed Vital Signs Vital Sign Reading Time Taken Comments Blood Pressure 122/76 05/12/2024 10:56 AM EXPORT ADMINISTRATOR Pulse 77 05/12/2024 10:56 AM EXPORT ADMINISTRATOR Temperature 36.3 C (97.4 F) 05/12/2024 10:56 AM EXPORT ADMINISTRATOR Respiratory Rate 18 05/12/2024 10:56 AM EXPORT ADMINISTRATOR Oxygen Saturation 97% 05/12/2024 10:56 AM EXPORT ADMINISTRATOR Inhaled Oxygen Concentration - - Weight 88.9 kg (196 lb) 05/12/2024 10:56 AM EXPORT ADMINISTRATOR Height 160 cm (5' 3 ) 05/12/2024 10:56 AM EXPORT ADMINISTRATOR Body Mass Index 34.72 05/12/2024 10:56 AM EXPORT ADMINISTRATOR Plan of Treatment Health Maintenance Due Date Last Done Comments DTaP/Tdap/Td Vaccine (1 - Tdap) 07/27/2003 Varicella Vaccines (1 of 2 - 13+ 2-dose series) 2005 Hepatitis B Screening 2010 Regular Well Visit/Exam 18-64 2010 Cervical Cancer Screening 12/30/2023 12/29/2022 Depression Screening 12/30/2023 12/29/2022 Influenza Vaccine (Season Ended) 2024 Hepatitis C Screening Completed 08/08/2022 HPV Vaccines Aged Out No longer eligi ble based on patient's age to complete this topic Pneumococcal vaccine <65 Aged Out No longer eligible based on patient's age to complete this topic Procedures Procedure Name Priority Date/Time Associated Diagnosis Comments POC INFLUENZA A/B, COVID-19 ANTIGEN Routine 05/12/2024 11:06 AM EXPORT ADMINISTRATOR Upper respiratory tract infection, unspecified type PAP AND HPV, REFLEX TO HPV GENOTYPES Routine 12/29/2022 4:25 PM CDT Encounter for routine follow-up HEPATITIS C RNA, QUANTITATIVE, PCR Routine 08/08/2022 8:32 PM CDT from Last 3 Months or Most Recently Relevant to Health Maintenance Results * (ABNORMAL) POC Influenza A/B, COVID-19 antigen (05/12/2024 11:06 AM EXPORT ADMINISTRATOR) Influenza A Ag, POC Negative Negative [facility] Influenza B Ag, POC Negative Negative [facility] COVID-19 Ag POC Positive(A) Presumptive Negative, Invalid [facility] Nasal 05/12/2024 11:0 6 AM EXPORT ADMINISTRATOR Erica Mckeon NP POINT OF CARE TEST ORDERABLE S Final Result Performing Organization Address City/State/[facility] Co de Phone Number [facility] [address] [place] [address] * Pap and HPV, reflex to HPV Genotypes (12/29/2022 4:25 PM CDT) CLINICAL INFORMATION: ASCUS/LIVAN Pap/Bx w/in 2yrs. SCREENING [facility] LMP UNKNOWN [facility] Previous Pap ASCUS [facility] Prev. Bx NONE GIVEN [facility] SOURCE: Cervix, Endocervix [facility] Pap, specimen adequacy SATISFACTORY FOR EVALUATION [facility] HPV interp Cytology Results: Negative for intraepithelial lesion or malignancy. Atrophic pattern; predominantly parabasal cells [facility] Touch Up Worker YQ, CT(ASCP) CT screening location: [place] [address] [address] [address] [facility] Review commercial lines manager KMS, CT(ASCP) CT Screening location: [place] [address] [address] [address] [facility] Comment [facility] Comment: EXPLANATORY NOTE: The Pap is [...] Client Letter) showing TIS test codes, see www.NearbyNow/Resources, and navigate to [employer]>Physician Materials>TIS Client Letter. You can also call for test code assistance. Human papillomavirus DNA, High Risk E6/E7 Not Detected NOT DETECTED [facility] [employer] [facility] Comment: Not Detected High Risk HPV types (16,18,31,33,35,39,45,51,52, 56,58,59,66,68) were not detected. Other HPV types which cause anogenital lesions may be present. The significance of the other types of HPV in malignant processes has not been established. Methodology: Real Time PCR Thin prep 12/29/2022 4:25 PM CDT 12/30/2022 1:46 PM CDT Julia Rios NP LAB CYTOLOGY ORDERAB LES Final Result [facility] [address] [place] [address] [facility]Rees [facility] [address] [place] [address] * Hepatitis C (HCV) RNA PCR, quantitative (08/08/2022 8:32 PM CDT) Pathologist [facility] HCV RNA result Not Detected [facility] Comment: The quantifiable range of this assay is 15 IU/mL to 100,000,000 IU/mL (1.18 log IU/mL to 8.00 log IU/mL). Testing was performed by the MARCI 6800 HCV Test ([employer] Testing performed at [facility] Current Interpretive Data was last revised on 2020 Blood 08/08/2022 8:32 PM CDT 08/08/2022 8:55 PM CDT us Nirmala Koroma MD LAB MICROBIOLOGY - GENERAL O RDERABLES Final Result [facility] Department [place] [address] from Last 3 Months or Most Recently Relevant to Health Maintenance [place] [id number] [place] Advance Directives For more information, please contact: [phone] * Full Code (Latest Code Status on File) Date Activated Date Inactivated Comments 11/16/2022 5:18 AM 11/17/2022 6:35 PM * Full Code Date Activated Date Inactivated Comments 11/15/2022 4:07 AM 11/16/2022 5:18 AM Full CPR in case of cardiopulmonary arrest * Full Code Date Activated Date Inactivated Comments 08/08/2022 7:32 PM 08/09/2022 9:05 PM Care Teams Solar Sales Representative Relationship Specialty Start Date End Date Ana Paula Gupta MD [address] [place] [address] PCP - General Internal Medicine 05/12/24
--- NOTE | 2024-07-31 19:01 | PC.NURSE ---
Performed SVE Dilation: 4cm Effacement:60% Station: minus 2 at 1750
== END 2024-07-31 18:30 | disposition home or self-care (01) ==
PROVIDERS: Admitting Provider Obstetrics & Gynecology Gynecology; PCP Obstetrics & Gynecology Gynecology; Visit Provider Obstetrics & Gynecology Gynecology
DX: O47.1 False labor at or after 37 completed weeks of gestation (principal); Z3A.37 37 weeks gestation of pregnancy
CPT/HCPCS: G0378; G0379

== ENCOUNTER 2024-08-02 01:08 | Observation (INO) | payer BC, SELFPAY ==
--- OUTSIDE RECORDS SUMMARY | 2024-08-02 03:08 | XMS_ITS | Referral Summary ---
Author Organization [facility] [address] [facility] Address [address] [place] [address] Care Team Providers Care Lubricating Machine Tender Name Role Phone Ana Paula Gupta MD Primary Care Provid er Encounters Date Type Department Care Team Description 05/12/2024 10:45 AM GYPSUM ROOFER Office Visit [facility] [place] [address] [place] [address] Erica Mckeon NP COVID-19 (Primary Dx); Upper respiratory tract infection, unspecified type from Last 3 Months Allergies No known active allergies Medications PNV with axaoicl-lnbf-PY 27 mg iron- 1 mg tabletIndication s:Vitamin [...] ABORH O Positive 08/08/2022 IDCOOMB Negative 08/08/2022 [id number] Nonreactive 08/08/2022 LABRPR Nonreactive 08/08/2022 RUBELIGG Reactive [...] often do you attend chur ch or nondenominational services? Never 11/16/2022 Do you belong to any clubs o r organizations such as episcopalian groups, unions, fraternal or athletic groups, or [...] place to sleep or slept in a retirement (including now)? 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 Not on file Not on file Not on f ile Last Filed Vital Signs Vital Sign Reading Time Taken Comments Blood Pressure 122/76 05/12/2024 10:56 AM GYPSUM ROOFER Pulse 77 05/12/2024 10:56 AM GYPSUM ROOFER Temperature 36.3 C (97.4 F) 05/12/2024 10:56 AM GYPSUM ROOFER Respiratory Rate 18 05/12/2024 10:56 AM GYPSUM ROOFER Oxygen Saturation 97% 05/12/2024 10:56 AM GYPSUM ROOFER Inhaled Oxygen Concentration - - Weight 88.9 kg (196 lb) 05/12/2024 10:56 AM GYPSUM ROOFER Height 160 cm (5' 3 ) 05/12/2024 10:56 AM GYPSUM ROOFER Body Mass Index 34.72 05/12/2024 10:56 AM GYPSUM ROOFER Plan of Treatment Not on file Procedures Procedure Name Priority Date/Time Associated Diagnosis Comments POC INFLUENZA A/B, COVID-19 ANTIGEN Routine 05/12/2024 11:06 AM GYPSUM ROOFER Upper respiratory tract infection, unspecified type PAP AND HPV, REFLEX TO HPV GENOTYPES Routine 12/29/2022 4:25 PM CDT Encounter for routine follow-up HEPATITIS C RNA, QUANTITATIVE, PCR Routine 08/08/2022 8:32 PM CDT from Last 3 Months or Most Recently Relevant to Health Maintenance Results * (ABNORMAL) POC Influenza A/B, COVID-19 antigen (05/12/2024 11:06 AM GYPSUM ROOFER) Influenza A Ag, POC Negative Negative [facility] [place] Influenza B Ag, POC Negative Negative [facility] [place] COVID-19 Ag POC Positive(A) Presumptive Negative, Invalid [facility] [place] Nasal 05/12/2024 11:0 6 AM GYPSUM ROOFER Erica Mckeon NP POINT OF CARE TEST ORDERABLE S Final Result Performing Organization Address City/State/[facility] Co de Phone Number [facility] [address] [place] [address] * Pap and HPV, reflex to HPV Genotypes (12/29/2022 4:25 PM CDT) CLINICAL INFORMATION: ASCUS/LIVAN Pap/Bx w/in 2yrs. [facility]CREENING [facility] Previous Pap ASCUS [facility] Prev. Bx NONE [facility] SOURCE: Cervix, Endocervix [facility] Pap, specimen adequacy SATISFACTORY FOR EVALUATION [facility] HPV interp Cytology Results: Negative for intraepithelial lesion or malignancy. Atrophic pattern; predominantly parabasal cells [facility] Diagnostic [facility] Medical Unit Secretary YQ, CT(ASCP) CT screening location: [place] [address] [place] [address] [facility] Review bakery machine mechanic supervisor KMS, CT(ASCP) CT Screening location: [place] [address] [address] [address] [facility] Comment [facility] Diagnostic [facility] Comment: EXPLANATORY NOTE: The Pap is [...] Client Letter) showing TIS test codes, see www.Curvo/Resources, and navigate to [employer]>Physician Materials>TIS Client Letter. You can also call for test code assistance. Human papillomavirus DNA, High Risk E6/E7 Not Detected NOT DETECTED [facility]gr[facility] [place] Comment: Not Detected High Risk HPV types (16,18,31,33,35,39,45,51,52, 56,58,59,66,68) were not detected. Other HPV types which cause anogenital lesions may be present. The significance of the other types of HPV in malignant processes has not been established. Methodology: Real Time PCR Thin prep 12/29/2022 4:25 PM CDT 12/30/2022 1:46 PM CDT us Julia Rios NP LAB CYTOLOGY ORDERAB LES Final Result [facility] [address] [address] [phone] [employer]/[place] [address] [place] [address] * Hepatitis C (HCV) RNA PCR, quantitative (08/08/2022 8:32 PM CDT) [facility] Signature HCV RNA result Not Detected [facility] Comment: The quantifiable range of this assay is 15 IU/mL to 100,000,000 IU/mL (1.18 log IU/mL to 8.00 log IU/mL). Testing was performed by the MARCI 6800 HCV Test ([employer] Testing performed at [facility] Current Interpretive Data was last revised on 2020 Blood 08/08/2022 8:32 PM CDT 08/08/2022 8:55 PM CDT Nirmala Koroma MD LAB MICROBIOLOGY - GENERAL O RDERABLES Final Result [facility] Department [place] [address] from Last 3 Months or Most Recently Relevant to Health Maintenance [place] [facility] Advance Directives For more information, please contact: [phone] * Full Code (Latest Code Status on File) Date Activated Date Inactivated Comments 11/16/2022 5:18 AM 11/17/2022 6:35 PM * Full Code Date Activated Date Inactivated Comments 11/15/2022 4:07 AM 11/16/2022 5:18 AM Full CPR in case of cardiopulmonary arrest * Full Code Date Activated Date Inactivated Comments 08/08/2022 7:32 PM 08/09/2022 9:05 PM Care Teams Lubricating Machine Tender Relationship Specialty Start Date End Date Ana Paula Gupta MD [address] [place] [address] PCP - General Internal Medicine 05/12/24
--- OUTSIDE RECORDS SUMMARY | 2024-08-02 03:08 | XMS_ITS | Clinical Summary ---
Author Organization [facility] Address [address] [place] [address] Care Team Providers Care Fourth Hand Name Role Phone None, Provider Primary Care Provider Unavaila ble Allergies No known active allergies Medications Prenat w/o K-DB-Vlliyal-FA- DHA (VITAMEDMD ONE RX/QUATREFOLIC) 30-0.6-0.4-200 MG Cap [...] to complete this topic Insurance Care Teams Fourth Hand Relationship Specialty Start Date End Date None, Provider, MD PCP - General UNKNOWN PHYSICIAN SPECIALTY 08/08/22
--- OUTSIDE RECORDS SUMMARY | 2024-08-02 03:08 | XMS_ITS | Clinical Summary ---
Author Organization [facility] Address [address] [place] [address] Care Team Providers Care Healthcare Network Pricing Consultant Name Role Phone Ana Paula Gupta MD Primary Care Provider Source Comments [facility],non-owned Affiliates and Associated Physician Practices is amultiple site organization consisting of ambulatory clinics and hospital sitesin [place], [place], [place] and [place]. This disclosure is being madepursuant to the Care Everywhere program and may not contain all information available regarding this patient. Last updated 17.[facility] Allergies No known active allergies Medications * [...] on file Legal Sex Female 2:53 PM ROLL UP MACHINE OPERATOR Gender Identity Not on file Sexual Orientation Not on file Last Filed Vital Signs Vital Sign Reading Time Taken Comments Blood Pressure 120/76 12/15/2023 7:38 AM CDT Pulse 86 12/15/2023 7:38 AM CDT Temperature 36.5 C (97.7 F) 12/15/2023 7:38 AM CDT Respiratory Rate - - Oxygen Saturation 99% 02/27/2022 10:36 AM ROLL UP MACHINE OPERATOR Inhaled Oxygen Concentration - - [...] this topic Insurance MEDICAID - OUT OF [facility] [address] [place] Care Teams Healthcare Network Pricing Consultant Relationship Specialty Start Date End Date Ana Paula Gupta MD [address] [place] [id number] PCP - General Internal Medicine 12/15/23
--- OUTSIDE RECORDS SUMMARY | 2024-08-02 03:08 | XMS_ITS | Clinical Summary ---
Author Organization [place] [id number] [facility] Address [address] [place] [address] Care Team Providers Care Academic Affairs Director Name Role Phone Ana Paula Gupta MD Primary Care Provid er Allergies No known active allergies Medications PNV with nxfhpwj-bmio-IS 27 mg iron- 1 mg tabletIndication s:Vitamin [...] ABORH O Positive 08/08/2022 IDCOOMB Negative 08/08/2022 [id number] Nonreactive 08/08/2022 LABRPR Nonreactive 08/08/2022 RUBELIGG Reactive [...] Department Care Team Description 05/12/2024 10:45 AM LIFE SKILLS COORDINATOR Office Visit [facility] Medical [facility] [place] [address] [place] [phone] Erica Mckeon NP COVID-19 (Primary Dx); Upper [...] often do you attend chur ch or baptism services? Never 11/16/2022 Do you belong to any clubs o r organizations such as mandaeism groups, unions, fraternal or athletic groups, or [...] place to sleep or slept in a mcc (including now)? No 11/16/2022 [place] Depression Scale Answer Date Recorded [place] Depression Scale Total 15 12/29/2022 The thought [...] on file Legal Sex Female 8:12 PM LIFE SKILLS COORDINATOR Gender Identity Not on file Sexual Orientation [...] ont Epidur al Y Livin g Delivery Location:[place], [place] [address] Ectopic ECTOPI C 2022 Term 39w 1d 22h 57m 22h 40m/0h 14m/0h 03m 3.39 kg (7 lb 7.6 oz) M Vagina l Epidur al N Livin g 9 9 WAYLON BARBOUR, Talya Mead MD Delivery Location:[facility] C ampus ([facility]LD) Current Comments [id number] 300 mL, gHT N Last Filed Vital Signs Vital Sign Reading Time Taken Comments Blood Pressure 122/76 05/12/2024 10:56 AM LIFE SKILLS COORDINATOR Pulse 77 05/12/2024 10:56 AM LIFE SKILLS COORDINATOR Temperature 36.3 C (97.4 F) 05/12/2024 10:56 AM LIFE SKILLS COORDINATOR Respiratory Rate 18 05/12/2024 10:56 AM LIFE SKILLS COORDINATOR Oxygen Saturation 97% 05/12/2024 10:56 AM LIFE SKILLS COORDINATOR Inhaled Oxygen Concentration - - Weight 88.9 kg (196 lb) 05/12/2024 10:56 AM LIFE SKILLS COORDINATOR Height 160 cm (5' 3 ) 05/12/2024 10:56 AM LIFE SKILLS COORDINATOR Body Mass Index 34.72 05/12/2024 10:56 AM LIFE SKILLS COORDINATOR Plan of Treatment Health Maintenance Due Date [...] A/B, COVID-19 ANTIGEN Routine 05/12/2024 11:06 AM LIFE SKILLS COORDINATOR Upper respiratory tract infection, unspecified type PAP AND HPV, REFLEX TO HPV GENOTYPES Routine 12/29/2022 4:25 PM CDT Encounter for routine follow-up HEPATITIS C RNA, QUANTITATIVE, PCR Routine 08/08/2022 8:32 PM CDT from Last 3 Months or Most Recently Relevant to Health Maintenance Results * (ABNORMAL) POC Influenza A/B, COVID-19 antigen (05/12/2024 11:06 AM LIFE SKILLS COORDINATOR) Influenza A Ag, POC Negative Negative [facility] Influenza B Ag, POC Negative Negative [facility] COVID-19 Ag POC Positive(A) Presumptive Negative, Invalid [facility] Nasal 05/12/2024 11:0 6 AM LIFE SKILLS COORDINATOR Erica Mckeon NP POINT OF CARE TEST ORDERABLE S Final Result Performing Organization Address City/State/[facility] Co de Phone Number [facility] [address] [place] [address] * Pap and HPV, reflex to HPV Genotypes (12/29/2022 4:25 PM CDT) CLINICAL INFORMATION: ASCUS/LIVAN Pap/Bx w/in 2yrs. SCREENING [facility] LMP UNKNOWN [facility] Previous Pap ASCUS [facility] Prev. Bx NONE GIVEN [facility] SOURCE: Cervix, Endocervix [facility] Pap, specimen adequacy SATISFACTORY FOR EVALUATION [facility] HPV interp Cytology Results: Negative for intraepithelial lesion or malignancy. Atrophic pattern; predominantly parabasal cells [facility] Executive Vice President And Chief Financial Officer YQ, CT(ASCP) CT screening location: [place] [address] [address] [address] [facility] Review basket patcher KMS, CT(ASCP) CT Screening location: [place] [address] [address] [address] [facility] Comment [facility] Comment: EXPLANATORY NOTE: The Pap is [...] Client Letter) showing TIS test codes, see www.WizeHive/Resources, and navigate to [employer]osWoman>Physician Materials>TIS Client Letter. You can also call for test code assistance. Human papillomavirus DNA, High Risk E6/E7 Not Detected NOT DETECTED [facility] [employer] [facility] Comment: Not Detected High Risk HPV types (16,18,31,33,35,39,45,51,52, 56,58,59,66,68) were not detected. Other HPV types which cause anogenital lesions may be present. The significance of the other types of HPV in malignant processes has not been established. Methodology: Real Time PCR Thin prep 12/29/2022 4:25 PM CDT 12/30/2022 1:46 PM CDT Julia Rios NP LAB CYTOLOGY ORDERAB LES Final Result [facility] [address] [place] [address] [facility]Rees [facility] [address] [place] [address] * Hepatitis C (HCV) RNA PCR, quantitative (08/08/2022 8:32 PM CDT) Pathologist [facility] HCV RNA result Not Detected [facility] Comment: The quantifiable range of this assay is 15 IU/mL to 100,000,000 IU/mL (1.18 log IU/mL to 8.00 log IU/mL). Testing was performed by the MARCI 6800 HCV Test ([employer] Testing performed at [facility] Current Interpretive Data was last revised on 2020 Blood 08/08/2022 8:32 PM CDT 08/08/2022 8:55 PM CDT us Nirmala Koroma MD LAB MICROBIOLOGY - GENERAL O RDERABLES Final Result [facility] Department [place] [address] from Last 3 Months or Most Recently Relevant to Health Maintenance Insurance [place]back [place]back [place] BLUE [place]ESS [place] Advance Directives For more information, please contact: [phone] * Full Code (Latest Code Status on File) Date Activated Date Inactivated Comments 11/16/2022 5:18 AM 11/17/2022 6:35 PM * Full Code Date Activated Date Inactivated Comments 11/15/2022 4:07 AM 11/16/2022 5:18 AM Full CPR in case of cardiopulmonary arrest * Full Code Date Activated Date Inactivated Comments 08/08/2022 7:32 PM 08/09/2022 9:05 PM Care Teams Academic Affairs Director Relationship Specialty Start Date End Date Ana Paula Gupta MD [address] [place] [address] PCP - General Internal Medicine 05/12/24
--- OUTSIDE RECORDS SUMMARY | 2024-08-02 03:08 | XMS_ITS | Encounter Summary ---
Author Organization [facility] Address [address] [place] [address] Care Team Providers Care Pneumatic Tube Repairer Name Role Phone None, Provider Primary Care Provider Unavaila ble Encounter Details Date Type Department Care Team (Latest Contact Info) Description 01/25/2018 Abstract [facility] , Generic Conversion, Social [...] on filedocumented in this encounter Care Teams Pneumatic Tube Repairer Relationship Specialty Start Date End Date None, Provider, PCP - General UNKNOWN PHYSICIAN SPECIALTY 08/08/22 documented as of this encounter
[2024-08-02 03:15] VITALS: BMI 37.3
--- NOTE | 2024-08-02 03:15 | OBADM ---
This patient, Shital Harden, admitted to the OB room Labor/Delivery/Recovery 107 for observation. Patient/family oriented to hospital policies and general routines including ID bracelet, bed and alarms, visiting hours, pain management, procedures, bathroom and other care routines, personal items, smoking policy, room service/diet, and visiting hours. Patient/Family are encouraged to report perceived risks to care and to ask questions if they do not understand what they are told or what they should do.
== END 2024-08-02 03:42 | disposition home or self-care (01) ==
PROVIDERS: Admitting Provider Obstetrics & Gynecology Gynecology; PCP Obstetrics & Gynecology Gynecology; Visit Provider Obstetrics & Gynecology Gynecology
DX: O47.1 False labor at or after 37 completed weeks of gestation (principal); Z3A.37 37 weeks gestation of pregnancy
CPT/HCPCS: G0378; G0379

== ENCOUNTER 2024-08-05 17:46 | Observation (INO) | payer BC, SELFPAY ==
[2024-08-05 19:15] VITALS: BP 119/80; PULSE 90
--- OUTSIDE RECORDS SUMMARY | 2024-08-05 19:32 | XMS_ITS | Clinical Summary ---
Author Organization [facility] Address [address] [place] [address] Care Team Providers Care Litigator Name Role Phone Ana Paula Gupta MD Primary Care Provider Source Comments [facility],non-owned Affiliates and Associated Physician Practices is amultiple site organization consisting of ambulatory clinics and hospital sitesin [place], [place] and [place]. This disclosure is being madepursuant to the Care Everywhere program and may not contain all information available regarding this patient. Last updated 17.[facility] Allergies No known active allergies Medications * [...] on file Legal Sex Female 2:53 PM PAINTER ORDNANCE Gender Identity Not on file Sexual Orientation Not on file Last Filed Vital Signs Vital Sign Reading Time Taken Comments Blood Pressure 120/76 12/15/2023 7:38 AM CDT Pulse 86 12/15/2023 7:38 AM CDT Temperature 36.5 C (97.7 F) 12/15/2023 7:38 AM CDT Respiratory Rate - - Oxygen Saturation 99% 02/27/2022 10:36 AM PAINTER ORDNANCE Inhaled Oxygen Concentration - - Weight 84.2 kg (185 lb 9.6 oz) 12/15/2023 7:38 A M CDT Height 161.3 cm (5' 3.5) 12/15/2023 7:38 AM CDT Body Mass Index [...] this topic Insurance MEDICAID - OUT OF [facility] [address] [place] Care Teams Litigator Relationship Specialty Start Date End Date Ana Paula Gupta MD [address] [place] [id number] PCP - General Internal Medicine 12/15/23
--- OUTSIDE RECORDS SUMMARY | 2024-08-05 19:32 | XMS_ITS | Clinical Summary ---
Author Organization [facility] Address [address] [place] [address] Care Team Providers Care Corrections Unit Supervisor Name Role Phone None, Provider Primary Care Provider Unavaila ble Allergies No known active allergies Medications Prenat w/o E-YT-Qnedvjm-FA- DHA (VITAMEDMD ONE RX/QUATREFOLIC) 30-0.6-0.4-200 MG Cap [...] 11:41 AM CDT Height 160 cm (5' 3) 06/03/2023 11:41 AM CDT Body Mass Index [...] to complete this topic Insurance Care Teams Corrections Unit Supervisor Relationship Specialty Start Date End Date None, Provider, MD PCP - General UNKNOWN PHYSICIAN SPECIALTY 08/08/22
--- OUTSIDE RECORDS SUMMARY | 2024-08-05 19:32 | XMS_ITS | Clinical Summary ---
Author Organization [place] [id number] [facility] Address [address] [place] [address] Care Team Providers Care Java Android Developer Name Role Phone Ana Paula Gupta MD Primary Care Provid er Allergies No known active allergies Medications PNV with sbsngfx-qgvr-WE 27 mg iron- 1 mg tabletIndication s:Vitamin [...] ABORH O Positive 08/08/2022 IDCOOMB Negative 08/08/2022 [id number] Nonreactive 08/08/2022 LABRPR Nonreactive 08/08/2022 RUBELIGG Reactive [...] Department Care Team Description 05/12/2024 10:45 AM COMMUNITY SERVICE COORDINATOR Office Visit [facility] [place] [address] [place] [id number] Erica Mckeon NP COVID-19 (Primary Dx); Upper [...] often do you attend chur ch or jain services? Never 11/16/2022 Do you belong to any clubs o r organizations such as holiness groups, unions, fraternal or athletic groups, or [...] place to sleep or slept in a assisted (including now)? No 11/16/2022 [place] Depression Scale Answer Date Recorded [place] Depression Scale Total 15 12/29/2022 The thought [...] on file Legal Sex Female 8:12 PM COMMUNITY SERVICE COORDINATOR Gender Identity Not on file Sexual [...] ont Epidur al Y Livin g Delivery Location:[place], [place] [address] Ectopic ECTOPI C 2022 Term 39w 1d 22h 57m 22h 40m/0h 14m/0h 03m 3.39 kg (7 lb 7.6 oz) M Vagina l Epidur al N Livin g 9 9 WAYLON BARBOUR, Talya Mead MD Delivery Location:[facility] ([facility]LD) Current Comments 8608-AP-GQBF-EBL 300 mL, gHT N Last Filed Vital Signs Vital Sign Reading Time Taken Comments Blood Pressure 122/76 05/12/2024 10:56 AM COMMUNITY SERVICE COORDINATOR Pulse 77 05/12/2024 10:56 AM COMMUNITY SERVICE COORDINATOR Temperature 36.3 C (97.4 F) 05/12/2024 10:56 AM COMMUNITY SERVICE COORDINATOR Respiratory Rate 18 05/12/2024 10:56 AM COMMUNITY SERVICE COORDINATOR Oxygen Saturation 97% 05/12/2024 10:56 AM COMMUNITY SERVICE COORDINATOR Inhaled Oxygen Concentration - - Weight 88.9 kg (196 lb) 05/12/2024 10:56 AM COMMUNITY SERVICE COORDINATOR Height 160 cm (5' 3) 05/12/2024 10:56 AM COMMUNITY SERVICE COORDINATOR Body Mass Index 34.72 05/12/2024 10:56 AM COMMUNITY SERVICE COORDINATOR Plan of Treatment Health Maintenance Due [...] A/B, COVID-19 ANTIGEN Routine 05/12/2024 11:06 AM COMMUNITY SERVICE COORDINATOR Upper respiratory tract infection, unspecified type PAP AND HPV, REFLEX TO HPV GENOTYPES Routine 12/29/2022 4:25 PM CDT Encounter for routine follow-up HEPATITIS C RNA, QUANTITATIVE, PCR Routine 08/08/2022 8:32 PM CDT from Last 3 Months or Most Recently Relevant to Health Maintenance Results * (ABNORMAL) POC Influenza A/B, COVID-19 antigen (05/12/2024 11:06 AM COMMUNITY SERVICE COORDINATOR) Influenza A Ag, POC Negative Negative [facility] Influenza B Ag, POC Negative Negative [facility] COVID-19 Ag POC Positive(A) Presumptive Negative, Invalid [facility] Nasal 05/12/2024 11:0 6 AM COMMUNITY SERVICE COORDINATOR Erica Mckeon NP POINT OF CARE TEST ORDERABLE S Final Result Performing Organization Address City/State/[facility] Co de Phone Number [facility] [address] [place] [address] * Pap and HPV, reflex to HPV Genotypes (12/29/2022 4:25 PM CDT) CLINICAL INFORMATION: ASCUS/LIVAN Pap/Bx w/in 2yrs. SCREENING [facility] LMP UNKNOWN [facility] Previous Pap ASCUS [facility] Prev. Bx NONE GIVEN [facility] SOURCE: Cervix, Endocervix [facility] Pap, specimen adequacy SATISFACTORY FOR EVALUATION [facility] HPV interp Cytology Results: Negative for intraepithelial lesion or malignancy. Atrophic pattern; predominantly parabasal cells [facility] Cotton Presser YQ, CT(ASCP) CT screening location: [place] [address] [address] [address] [facility] Review commercial finance analyst KMS, CT(ASCP) CT Screening location: [place] [address] [address] [address] [facility] Comment [facility] Comment: EXPLANATORY NOTE: The Pap is a [...] Client Letter) showing TIS test codes, see www.Kudo/Resources, and navigate to VubiquityWoman>Physician Materials>TIS Client Letter. You can also call for test code assistance. Human papillomavirus DNA, High Risk E6/E7 Not Detected NOT DETECTED [facility] [employer] [facility] Comment: Not Detected High Risk HPV types (16,18,31,33,35,39,45,51,52, 56,58,59,66,68) were not detected. Other HPV types which cause anogenital lesions may be present. The significance of the other types of HPV in malignant processes has not been established. Methodology: Real Time PCR Thin prep 12/29/2022 4:25 PM CDT 12/30/2022 1:46 PM CDT Julia Rios NP LAB CYTOLOGY ORDERAB LES Final Result [facility] [address] [place] [address] [employer]/[facility]es [facility] [address] [address] * Hepatitis C (HCV) RNA PCR, quantitative (08/08/2022 8:32 PM CDT) Pathologist [facility] HCV RNA result Not Detected [facility] Comment: The quantifiable range of this assay is 15 IU/mL to 100,000,000 IU/mL (1.18 log IU/mL to 8.00 log IU/mL). Testing was performed by the [facility] 6800 HCV Test ([employer] Testing performed at [facility] Current Interpretive Data was last revised on 2020 Blood 08/08/2022 8:32 PM CDT 08/08/2022 8:55 PM CDT us Nirmala Koroma MD LAB MICROBIOLOGY - GENERAL O RDERABLES Final Result [facility] Department [place] [address] from Last 3 Months or Most Recently Relevant to Health Maintenance [place] [employer] [place] [employer] Advance Directives For more information, please contact: [phone] * Full Code (Latest Code Status on File) Date Activated Date Inactivated Comments 11/16/2022 5:18 AM 11/17/2022 6:35 PM * Full Code Date Activated Date Inactivated Comments 11/15/2022 4:07 AM 11/16/2022 5:18 AM Full CPR in case of cardiopulmonary arrest * Full Code Date Activated Date Inactivated Comments 08/08/2022 7:32 PM 08/09/2022 9:05 PM Care Teams Java Android Developer Relationship Specialty Start Date End Date Ana Paula Gupta MD [address] [place] [address] PCP - General Internal Medicine 05/12/24
--- OUTSIDE RECORDS SUMMARY | 2024-08-05 19:32 | XMS_ITS | Referral Summary ---
Author Organization [facility] [address] [facility] Address [address] [place] [address] Care Team Providers Care Easement Man Name Role Phone Ana Paula Gupta MD Primary Care Provid er Encounters Date Type Department Care Team Description 05/12/2024 10:[address] TECHNICIAN Office Visit [facility] [place] [address] [place] [phone] Erica Mckeon NP COVID-19 (Primary Dx); Upper respiratory tract infection, unspecified type from Last 3 Months Allergies No known active allergies Medications PNV with pondcym-ynxc-AU 27 mg iron- 1 mg tabletIndication s:Vitamin [...] normal , antepartum 10/02/2022 12/29/2022 Overview (10/30/2022): -[facility] from [facility] @ 34wks, records in [...] ABORH O Positive 08/08/2022 IDCOOMB Negative 08/08/2022 [id number] Nonreactive 08/08/2022 LABRPR Nonreactive 08/08/2022 RUBELIGG Reactive [...] any clubs o r organizations such as judaism groups, unions, fraternal or athletic groups, or [...] place to sleep or slept in a chcf (including now)? 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 file Not on file Not on f ile Last Filed Vital Signs Vital Sign Reading Time Taken Comments Blood Pressure 122/76 05/12/2024 10:[address]WAY TECHNICIAN Pulse 77 05/12/2024 10:[address]WAY TECHNICIAN Temperature 36.3 C (97.4 F) 05/12/2024 10:[address]WAY TECHNICIAN Respiratory Rate 18 05/12/2024 10:[address] TECHNICIAN Oxygen Saturation 97% 05/12/2024 10:[address] TECHNICIAN Inhaled Oxygen Concentration - - Weight 88.9 kg (196 lb) 05/12/2024 10:[address]WAY TECHNICIAN Height 160 cm (5' 3) 05/12/2024 10:[address]WAY TECHNICIAN Body Mass Index 34.72 05/12/2024 10:[address] TECHNICIAN Plan of Treatment Not on file Procedures Procedure Name Priority Date/Time Associated Diagnosis Comments POC INFLUENZA A/B, COVID-19 ANTIGEN Routine 05/12/2024 11:[address] TECHNICIAN Upper respiratory tract infection, unspecified type PAP AND HPV, REFLEX TO HPV GENOTYPES Routine 12/29/2022 4:25 PM CDT Encounter for routine follow-up HEPATITIS C RNA, QUANTITATIVE, PCR Routine 08/08/2022 8:32 PM CDT from Last 3 Months or Most Recently Relevant to Health Maintenance Results * (ABNORMAL) POC Influenza A/B, COVID-19 antigen (05/12/2024 11:[address] TECHNICIAN) Influenza A Ag, POC Negative Negative [facility] Influenza B Ag, POC Negative Negative [facility] COVID-19 Ag POC Positive(A) Presumptive Negative, Invalid [facility] Nasal 05/12/2024 11:[address] TECHNICIAN Erica Mckeon NP POINT OF CARE TEST ORDERABLE S Final Result Performing Organization Address City/State/[facility] Co de Phone Number [facility] [address] [place] [address] * Pap and HPV, reflex to HPV Genotypes (12/29/2022 4:25 PM CDT) CLINICAL INFORMATION: ASCUS/LIVAN Pap/Bx w/in 2yrs. SCREENING [facility] LMP UNKNOWN [facility] Previous Pap ASCUS [facility] Prev. Bx NONE GIVEN [facility] SOURCE: Cervix, Endocervix [facility] Pap, specimen adequacy SATISFACTORY FOR EVALUATION [facility] HPV interp Cytology Results: Negative for intraepithelial lesion or malignancy. Atrophic pattern; predominantly parabasal cells [facility] Linux Admin YQ, CT(ASCP) CT screening location: [place] [address] [place] [address] [facility] Review station air traffic control specialist KMS, CT(ASCP) CT Screening location: [place] [address] [address] [address] [facility] Comment [facility] Comment: EXPLANATORY NOTE: The Pap is [...] Client Letter) showing TIS test codes, see www.[employer]/Resources, and navigate to Frogdice-Woman>Physician Materials>TIS Client Letter. You can also call for test code assistance. Human papillomavirus DNA, High Risk E6/E7 Not Detected NOT DETECTED [facility]/Negrita [place] Comment: Not Detected High Risk HPV types (16,18,31,33,35,39,45,51,52, 56,58,59,66,68) were not detected. Other HPV types which cause anogenital lesions may be present. The significance of the other types of HPV in malignant processes has not been established. Methodology: Real Time PCR Thin prep 12/29/2022 4:25 PM CDT 12/30/2022 1:46 PM CDT us Julia Rios NP LAB CYTOLOGY ORDERAB LES Final Result [facility] [place] [address] [address] [place] [phone] [employer] [address] [place] [address] * Hepatitis C (HCV) RNA PCR, quantitative (08/08/2022 8:32 PM CDT) [facility] Signature HCV RNA result Not Detected [facility] Comment: The quantifiable range of this assay is 15 IU/mL to 100,000,000 IU/mL (1.18 log IU/mL to 8.00 log IU/mL). Testing was performed by the [facility] 6800 HCV Test ([employer] Testing performed at [facility] Current Interpretive Data was last revised on 2020 Blood 08/08/2022 8:32 PM CDT 08/08/2022 8:55 PM CDT Nirmala Koroma MD LAB MICROBIOLOGY - GENERAL O RDERABLES Final Result [facility]ATELYN [facility] [place] [address] from Last 3 Months or Most Recently Relevant to Health Maintenance [place] book[place] [facility] Advance Directives For more information, please contact: [phone] * Full Code (Latest Code Status on File) Date Activated Date Inactivated Comments 11/16/2022 5:18 AM 11/17/2022 6:35 PM * Full Code Date Activated Date Inactivated Comments 11/15/2022 4:07 AM 11/16/2022 5:18 AM Full CPR in case of cardiopulmonary arrest * Full Code Date Activated Date Inactivated Comments 08/08/2022 7:32 PM 08/09/2022 9:05 PM Care Teams Easement Man Relationship Specialty Start Date End Date Ana Paula Gupta MD [address] [place] [address] PCP - General Internal Medicine 05/12/24
--- OUTSIDE RECORDS SUMMARY | 2024-08-05 19:32 | XMS_ITS | Encounter Summary ---
Author Organization [facility] Address [address] [place] [address] Care Team Providers Care Is Analyst Name Role Phone None, Provider Primary Care Provider Unavaila ble Encounter Details Date Type Department Care Team (Latest Contact Info) Description 01/25/2018 Abstract [facility] , Generic Conversion, Social [...] on filedocumented in this encounter Care Teams Is Analyst Relationship Specialty Start Date End Date None, Provider, PCP - General UNKNOWN PHYSICIAN SPECIALTY 08/08/22 documented as of this encounter
== END 2024-08-05 19:43 | disposition home or self-care (01) ==
PROVIDERS: Admitting Provider Obstetrics & Gynecology Gynecology; Visit Provider Obstetrics & Gynecology Gynecology
DX: O47.9 False labor, unspecified (principal); Z3A.00 Weeks of gestation of pregnancy not specified
CPT/HCPCS: G0378; G0379

== ENCOUNTER 2024-08-18 00:11 | Observation (INO) | payer BC, SELFPAY ==
[2024-08-18 05:30] VITALS: BP 110/65; PULSE 80; BMI 34.2
--- NOTE | 2024-08-18 05:30 | OBADM ---
This patient, Shital Harden, admitted to the OB room Labor/Delivery/Recovery 105 for observation. Patient/family oriented to hospital policies and general routines including ID bracelet, bed and alarms, visiting hours, pain management, procedures, bathroom and other care routines, personal items, smoking policy, room service/diet, and visiting hours. Patient/Family are encouraged to report perceived risks to care and to ask questions if they do not understand what they are told or what they should do.
[2024-08-18] MEDS: LACTATED RINGERS 1,000 ML 999 ML IV CONT (05:40)
[2024-08-18 05:45] VITALS: BP 110/60; PULSE 78
[2024-08-18 06:00] VITALS: BP 103/62; PULSE 73
[2024-08-18 06:14] VITALS: BP 120/70; PULSE 47; PULSE 71; O2SAT 84
[2024-08-18 06:15] VITALS: TEMP 36.8
--- NOTE | 2024-08-21 08:53 | PM.OBTRLD ---
OB - Triage/Final Diagnosis Visit Information Comments/Additional reasons for admission: I have assessed the risk for this patient, Shital Harden, and determined that she would benefit from observation care. Final Diagnosis (1) False labor: Code(s): O47.9 - False labor, unspecified Status: Acute
== END 2024-08-18 08:19 | disposition home or self-care (01) ==
PROVIDERS: Admitting Provider Obstetrics & Gynecology; Visit Provider Obstetrics & Gynecology
DX: O47.1 False labor at or after 37 completed weeks of gestation (principal); Z3A.39 39 weeks gestation of pregnancy
CPT/HCPCS: 96360; G0378; G0379; J7120

== ENCOUNTER 2024-08-19 07:24 | Inpatient (IN) | payer BC, SELFPAY ==
[2024-08-19] VITALS (34 sets, daily range): BP systolic 87–131; BP diastolic 49–117; PULSE 66–115; RESP 16–20; TEMP 36.5–36.9; O2SAT 91–100; BMI 39.1
--- NOTE | 2024-08-19 07:38 | LDADM ---
This patient, Shital Harden, was admitted to Labor/Delivery/Recovery 105 on 08/19/24 at 07:24. Plans for labor, pain management and were discussed with patient. Patient/family oriented to hospital policies and general routines including ID bracelet, bed and alarms, visiting hours, pain management, procedures, bathroom and other care routines, personal items, smoking policy, room service/diet and guest tray routines, infant security routines, and visiting hours. Patient/Family are encouraged to report perceived risks to care and to ask questions if they do not understand what they are told or what they should do. See OBIX for further documentation.
[2024-08-19] MEDS: LACTATED RINGERS 1,000 ML 125 ML IV CONT (07:40)
[2024-08-19 07:48] LABS: Basophils Percent Auto 0.3 % (0.2-1.2); Eosinophils Absolute Auto 0.1 K/mm3 (0-0.3); Eosinophils Percent Auto 0.8 % (0-4.4); Hematocrit 36.5 % (37.0-47.0); Hemoglobin 12.4 g/dL (12.0-15.0); Immature Granulocyte Absolute 0.05 K/mm3 (0.00-0.031); Immature Granulocyte Percent A 0.6 % (0-0.5); Lymphocytes Absolute Auto 1.65 K/mm3 (0.9-3.2); Lymphocytes Percent Auto 20.7 % (18.3-44.2); Mean Corpuscular Hemoglobin 30.6 pg (26-34); Mean Corpuscular Volume 90.1 fl (80-100); Monocytes Absolute Auto 0.4 K/mm3 (0.1-0.6); Monocytes Percent Auto 5.5 % (2.6-8.5); Neutrophils Absolute Auto 5.8 K/mm3 (1.3-6.7); Neutrophils Percent Auto 72.1 % (45.5-73.1); Platelet Count Result 135 k/mm3 (150-375); Red Blood Count 4.05 M/mm3 (4.2-5.4); Red Cell Distribution Width 13.3 % (11.5-14.5)
[2024-08-19] MEDS: OXYTOCIN 30 UNITS/NS 500 ML 30 UNITS/500 ML BAG 999 UNITS IV CONT (08:22)
[2024-08-19 08:35] LABS: Syphilis IgG/IgM Antibody Negative (Negative)
--- NOTE | 2024-08-19 08:36 | WPDOBADMIT ---
Obstetrics - Admit Note Admission Note: record reviewed. Additions to the history and/or subsequent changes in the physical findings follow. 34 y/o at 40 weeks here with contractions. Found to have complete dilation on admission. SROM with clear fluid here. GBS neg. AVSS NST reactive TOCO: contractions every 2-4 min ABD soft, nontender between contractions. Gravid. EXT nontender Cervix C/+1 See delivery note.
--- NOTE | 2024-08-19 08:37 | P.PCNOB_ITS ---
OB - Vaginal Delivery Note Procedure Delivery date: 08/19/24 Delivery monitor: External FHT and External Uterine Route of delivery: Laceration Description: Periurethral Delivery repair: vicryl (3-0) Specimen: Yes (cord blood) Quantitative Blood Loss (ml): 120 Anesthesia type: Local (1% lidocaine) Disposition: PACU Complications: None Narrative: 34 y/o at 40 weeks gestation who presented to the hospital with contractions. Found to have complete dilation. SROM with clear fluid. She pushed and delivered the 's head to the perineum, followed by the body. The nose and mouth were bulb suctioned. After a delay, the cord was clamped and cut. The infant was handed off the field. Cord blood was collected. The placenta delivered spontaneously and was grossly normal in appearance. The usual 3 vessel cord was noted. A right sided periurethral laceration was sustained. This was infiltrated with 4 mL 1% lidocaine and reapproximated using 3 0 Vicryl in a single interrupted figure of eight fashion. Excellent hemostasis resulted as did excellent reapproximation of the normal anatomy. Needle and instrument counts were correct. The patient was taken to recovery room in stable condition. The went to the nursery in stable condition. I was present and scrubbed for the entire delivery. [place] Baby Date of : 08/19/24 Time of : 08:22 Gestational Age by Date: 40 Infant gender: Female presentation: vertex position: Left Occiput Anterior Placenta delivery description: Spontaneous and Normal Configuration Cord Vessel Description: 3 Vessels and Delayed Cord Clamping
[2024-08-19 08:39] LABS: HIV 1/2 Ab P24 Ag Result Negative (Negative)
--- NOTE | 2024-08-19 08:39 | P.DS_ITS ---
DS: Admitting Diagnosis Discharge Date 08/21/24 <Gricelda Bahena MD - Last Filed: 08/21/24 12:00> Admitting Diagnosis IUP at 40 weeks Labor <Anant Mcdaniel MD - Last Filed: 08/20/24 09:13> DS: Discharge Diagnosis Discharge Diagnosis (1) (normal spontaneous vaginal delivery): Code(s): O80 - Encounter for full-term uncomplicated delivery <Anant Mcdaniel MD - Last Filed: 08/20/24 09:13> Status: Acute <Anant Mcdaniel MD - Last Filed: 08/20/24 09:13> OB - DS: Summary OB Procedures : None <Anant Mcdaniel MD - Last Filed: 08/20/24 09:13> OB Procedures Intrapartum: Spontaneous Vag Delivery <Anant Mcdaniel MD - Last Filed: 08/20/24 09:13> OB Procedures: : None <Anant Mcdaniel MD - Last Filed: 08/20/24 09:13> Peripartum Data Laceration Description: Periurethral <Anant Mcdaniel MD - Last Filed: 08/20/24 09:13> Time Spent with Patient Time attestation: Total time spent providing and/or coordinating discharge services: <Anant Mcdaniel MD - Last Filed: 08/20/24 09:13> DS: Data Data Completed and Pending Labs on day of discharge: Labs from last 24 hours 08/19/24 07:41 WBC 8.0 RBC 4.05 L Hgb 12.4 Hct 36.5 L MCV 90.1 MCH 30.6 MCHC 34.0 RDW 13.3 Plt Count 135 L MPV 12.0 H Immature Gran % (Auto) 0.6 H Neut % (Auto) 72.1 Lymph % (Auto) 20.7 Aurora % (Auto) 5.5 Eos % (Auto) 0.8 Baso % (Auto) 0.3 Lymph # (Auto) 1.65 [place] # (Auto) 0.4 Eos # (Auto) 0.1 Baso # (Auto) 0.0 Abs Immat Gran (auto) 0.05 H Absolute Neuts (auto) 5.8 Absolute Nucleated RBC 0.000 Nucleated RBC % 0.0 Syphilis IgG/IgM Ab Negative HIV 1&2 Ab/P24 Ag 4thGn Negative Blood Type O Positive Antibody Screen Pending <Anant Mcdaniel MD - Last Filed: 08/20/24 09:13> Discharge Plan Discharge Attending physician on discharge: Gricelda Bahena <Anant Mcdaniel MD - Last Filed: 08/20/24 09:13> Gricelda Bahena <Gricelda Bahena MD - Last Filed: 08/21/24 12:00> Discharging Clinician: Gricelda Bahena <Anant Mcdaniel MD - Last Filed: 08/20/24 09:13> Gricelda Bahena <Gricelda Bahena MD - Last Filed: 08/21/24 12:00> Patient Disposition: Home <Anant Mcdaniel MD - Last Filed: 08/20/24 09:13> Activity: pelvic rest <Anant Mcdaniel MD - Last Filed: 08/20/24 09:13> pelvic rest <Gricelda Bahena MD - Last Filed: 08/21/24 12:00> Diet: regular <Anant Mcdaniel MD - Last Filed: 08/20/24 09:13> regular <Gricelda Bahena MD - Last Filed: 08/21/24 12:00> Discharge Instructions: Call or return if temperature above 100.4? F, increased abdominal pain, increased vaginal bleeding or any new problems. <Anant Mcdaniel MD - Last Filed: 08/20/24 09:13> Patient Language: Namibian <Anant Mcdaniel MD - Last Filed: 08/20/24 09:13> Stand Alone Forms: General Discharge Information <Anant Mcdaniel MD - Last Filed: 08/20/24 09:13> Follow-up/Referrals: Gricelda Bahena MD [Physician] - Call for Appointment <Anant Mcdaniel MD - Last Filed: 08/20/24 09:13> Discharge Medications: New ibuprofen 600 mg tablet 600 mg PO Q6H PRN (Reason: cramps) Qty: 30 0RF Continued PNV cmb#95-ferrous fumarate-FA [] 28 mg iron- 800 mcg tablet 1 tablet PO DAILY cholecalciferol (vitamin D3) [Vitamin D3] 125 mcg (5,000 unit) tablet 5,000 unit PO DAILY Discontinued ferrous sulfate [FeroSul] 325 mg (65 mg iron) tablet 325 mg PO DAILY <Anant Mcdaniel MD - Last Filed: 08/20/24 09:13> Date of admission: 08/19/24 07:24 <Anant Mcdaniel MD - Last Filed: 08/20/24 09:13> Primary Care Provider: PHYSICIAN NOT ON STAFF,NONSTAFF <Anant Mcdaniel MD - Last Filed: 08/20/24 09:13> Admitting Provider: Gricelda Bahena <Anant Mcdaniel MD - Last Filed: 08/20/24 09:13> Attending physician on admission: Gricelda Bahena <Anant Mcdaniel MD - Last Filed: 08/20/24 09:13> Condition: Stable <Anant Mcdaniel MD - Last Filed: 08/20/24 09:13>
[2024-08-19] MEDS: OXYTOCIN 30 UNITS/NS 500 ML 30 UNITS/500 ML BAG 125 UNITS IV CONT (09:00)
[2024-08-19] MEDS: LIDOCAINE 1% LOCAL INJ 20 ML VIAL (09:47)
[2024-08-19] MEDS: IBUPROFEN 600 MG TABLET (09:56)
--- NOTE | 2024-08-19 11:48 | OBPPTRN ---
Patient transferred to post room #285 via wheelchair. Support person present. Oriented to unit, room, information board, rooming in, admission packet and security measures. Patient verbalizes understanding.
[2024-08-19] MEDS: MULTIVIT/MIN/PREN/FOL AC/IRON TABLET 1 TAB PO (12:15)
[2024-08-19] MEDS: ACETAMINOPHEN 325 MG TABLET 650 MG PO ×2 (12:15→23:53)
[2024-08-19] MEDS: DOCUSATE SODIUM 100 MG CAPSULE PO (12:15)
--- NOTE | 2024-08-19 13:15 | PC.NURSE ---
Introductions were made, then consulted with patient to assess needs related to . Discussed with mother her plans to feed her and the experience so far. Baby fed twice in labor and delivery. Mom states it's going well so far. Resources provided for inpatient and outpatient services with the feeding sheet, mom/baby guide and name written on the communication board. Mother voiced understanding of information and will call if there is a request for assistance. Reported to the Primary RN.?
[2024-08-19] MEDS: IBUPROFEN 600 MG TABLET PO (17:46)
[2024-08-20] MEDS: IBUPROFEN 600 MG TABLET PO ×3 (04:08→23:13)
[2024-08-20 04:39] LABS: Hematocrit 32.9 % (37.0-47.0); Hemoglobin 11.1 g/dL (12.0-15.0)
[2024-08-20 07:54] VITALS: BP 118/76; PULSE 56; RESP 16; TEMP 36.4; O2SAT 99
[2024-08-20] MEDS: MULTIVIT/MIN/PREN/FOL AC/IRON TABLET 1 TAB PO (08:18)
[2024-08-20] MEDS: DOCUSATE SODIUM 100 MG CAPSULE PO ×2 (08:18→16:10)
[2024-08-20] MEDS: ACETAMINOPHEN 325 MG TABLET 650 MG PO ×2 (08:18→18:14)
--- NOTE | 2024-08-20 09:11 | P.PNOB_ITS ---
OB - PN: Subj Subjective Date/time seen: 08/20/24 09:11 Narrative: Pain OK. OB - PN: Obj Data Labs 08/20/24 04:31 Labs: Laboratory Results - last 24 hr 08/20/24 04:31 Hgb 11.1 L Hct 32.9 L OB - PN A/P Plan day: 1 Comments: A: PPD#1, doing well. P: Routine care. Exam 2 Psych: Other: AVSS ABD soft, nontender, fundus firm EXT nontender
[2024-08-20 20:45] VITALS: BP 123/69; PULSE 58; RESP 16; TEMP 36.9; O2SAT 96
[2024-08-20 23:40] VITALS: BP 118/78; PULSE 68; RESP 16; TEMP 36.5; O2SAT 97
[2024-08-21] MEDS: ACETAMINOPHEN 325 MG TABLET 650 MG PO ×3 (03:26→18:57)
[2024-08-21] MEDS: MULTIVIT/MIN/PREN/FOL AC/IRON TABLET 1 TAB PO (07:39)
[2024-08-21] MEDS: IBUPROFEN 600 MG TABLET PO ×3 (07:39→22:14)
[2024-08-21] MEDS: DOCUSATE SODIUM 100 MG CAPSULE PO ×2 (07:39→16:10)
[2024-08-21 07:40] VITALS: BP 138/84; PULSE 53; RESP 18; TEMP 36.4; O2SAT 99
--- NOTE | 2024-08-21 09:50 | PC.NURSE ---
Patient is pumping due to glucose below normal range and there is a doctor's order to supplement. Mom is upset that it has become necessary to supplement baby's with additional volume. She prefers to give pumped breast milk rather than formula. Mom requested the 27mm flanges because this is what she has used in the past. She has experience with pumping with her other children. She demonstrates hands on pumping to encourage the greatest results. Encouraged patient to call out for any assistance needed. Primary RN updated.
--- NOTE | 2024-08-21 11:59 | P.PNOB_ITS ---
OB - PN: Subj Subjective Date/time seen: 08/21/24 11:59 Patient comments: no complaints and pain well controlled baby status: other (low sugars so having to stay) OB - PN: Obj Data Labs 08/20/24 04:31 OB - PN A/P Plan day: 2 Plan: routine care, discharge home, follow up 6 weeks and other (Plans condoms) Time Spent With Patient Time: Total time spent is greater than 50% in coordination of care (as documented) at patient's floor/unit and/or counseling patient: Exam 2 : Bimanual exam- vagina & uterus: other (Uterus firm, nt @U)
--- NOTE | 2024-08-21 14:29 | PC.NURSE ---
Patient viewed the discharge video Mother & Baby Care, The First Two Weeks. Patient was given the opportunity and encouraged to ask questions. Patient verbalized understanding of information shared and has been given the mother/baby guide for home reference.
[2024-08-21 20:09] VITALS: BP 108/78; PULSE 68; RESP 16; TEMP 36.3; O2SAT 98
== END 2024-08-21 22:19 | disposition home or self-care (01) | DRG 807 ==
LOC: ANHLDR 09:51 → ANHOB2 11:49
PROVIDERS: Admitting Provider Obstetrics & Gynecology; Visit Provider Obstetrics & Gynecology Gynecology
DX: O62.3 Precipitate labor (principal); Z37.0 Single live birth; O71.82 Other specified trauma to perineum and vulva; Z3A.40 40 weeks gestation of pregnancy
CPT/HCPCS: 36415; 85014; 85018; 85025; 86593; 86703; 86850; 86900; 86901; A9270; G0432; J2003; J2590; J7120